=== PATIENT | female | born 1945 | race Caucasian/White ===

== ENCOUNTER 2017-07-11 19:02 | Emergency (ER) | payer OTHER ==
[~2017-07-11] VITALS: Ht 152.4 cm; Wt 63.0 kg
--- NOTE | 2017-07-11 21:28 | ULTRASOUND REPORT ---
US TRIPLEX LOWER EXTREMITY, RIGHT CLINICAL INFORMATION: Right lower extremity swelling. COMPARISON: None TECHNIQUE: Color-flow triplex imaging with spectral analysis and compression Doppler were performed on the lower extremity. FINDINGS: There is deep venous thrombosis extending from the right common femoral vein into the mid superficial femoral vein. The remaining venous system of the right lower extremity is widely patent and compressible. Low velocity flow. IMPRESSION: There is deep venous thrombosis extending from the right common femoral vein into the mid superficial femoral vein. Critical findings discussed with Dr. Stoddard at 9:25 PM on 07/11/2017.
--- NOTE | 2017-07-11 21:36 | ULTRASOUND REPORT ---
EXAMINATION: US DUPLEX LOWER EXTREMITY ARTERY/GRAFT LIMITED, right groin. CLINICAL INFORMATION: Cardiac catheter on Sunday. Leg swelling yesterday. COMPARISON: None TECHNIQUE: Grayscale and color Doppler exam performed. Spectral Doppler exam performed. Right groin examined. Common femoral artery through the superior femoral artery examined. FINDINGS: No pseudoaneurysm or focal fluid collections. The common femoral vein is noncompressible. A DVT study not excluded. IMPRESSION: 1. No pseudoaneurysm or focal fluid collection in right groin. 2. Noncompressible common femoral vein. Concern for deep vein thrombosis. A Doppler ultrasound study of the right lower extremity was subsequently performed. See separate report.
[2017-07-11 22:12] VITALS: BP 116/71
[2017-07-11 22:22] LABS: ABSOLUTE BASOPHIL COUNT 0.1 /CUMM (0.0-0.2); ABSOLUTE EOSINOPHIL COUNT 0.4 /CUMM (0.0-0.7); ABSOLUTE GRANULOCYTE CT 6.1 /CUMM (1.4-6.5)
[2017-07-11 22:29] LABS: ABSOLUTE LYMPH COUNT 2.5 /CUMM (1.2-3.4); ABSOLUTE MONOCYTE COUNT 0.8 /CUMM (0.10-0.60); BASOPHIL % 0.8 % (0.0-2.0); EOSINOPHIL % 3.9 % (0-5); GRANULOCYTE % 61.9 % (42.2-75.2); MEAN CORPUSCULAR HGB 27.7 PG (27.0-31.0); MEAN CORPUSCULAR HGB CONC 32.7 G/DL (33.0-37.0); MEAN CORPUSCULAR VOLUME 84.9 FL (81.0-99.0); MEAN PLATELET VOLUME 9.2 FL (7.4-10.4); PLATELET COUNT 272 /CUMM (130-400); RBC DISTRIBUTION WIDTH 14.1 % (11.5-14.5); RED BLOOD CELL CT 3.88 /CUMM (4.20-5.40); WHITE BLOOD CELL COUNT 9.9 /CUMM (4.8-10.8)
[2017-07-11 22:34] LABS: HEMATOCRIT 32.9 % (37-47)
--- NOTE | 2017-07-11 22:35 | ED GENERAL ADULT ---
History of Present Illness General Chief Complaint: General Adult Stated Complaint: SIB DR BERRY Source: patient, old records Exam Limitations: no limitations Vital Signs & Intake/Output Vital Signs & Intake/Output Vital Signs Date Time Temp Pulse Resp B/P B/P Pulse O2 O2 Flow FiO2 Mean Ox Delivery Rate 07/11 2310 Room Air 07/11 2211 98.9 70 18 116/71 96 Room Air 07/110 97.2 67 18 123/77 96 Room Air Allergies Coded Allergies: codeine (Intermediate, GI UPSET 07/06/17) Reconcile Medications Apixaban (Eliquis) 5 MG (74 TABS) TAB.DS.PK 0 PO SEE ADMIN CRITERIA dvt 2 tabs 2 times a day for 1 week then 1 tab 2 times a day Core Measure Meds Pre-Hospital aspirin, brillinta Triage Note: PT FROM HOME SENT IN BY DR BERRY DUE TO RIGHT LEG PAIN. PT STATES THAT SUNDAY PT HAD A OK AND WAS SHIPPED TO [facility]. PT DENIES HAVING ANY STENTS PLACED. PT STATES "SINCE THEN MY RIGHT LEG HAS BEEN PAINFUL, SWOLLEN, AND RED WHEN TOUCHED AT THE SITE OF INCISION. PT AMBULATES WITHOUT DIFFICULTY. PTS VSS, AFEBRILE. PT TO AND FROM US. PT STATES CURRENTLY ON BLOOD THINNERS. Triage Nurses Notes Reviewed? yes Onset: yesterday Duration: day(s):, constant, continues in ED Timing: recent history Injury Environment: home Severity: moderate, severe No Modifying Factors: none LMP (ages 10-50): post menopausal : No Patient currently breastfeeds: No HPI: 6 days prior to admission patient had OK with transfer to [facility] for cardiac catheterization and stenting. 1 day prior to admission she noted right leg swelling continued right inguinal bruising. She denies fever chills nausea vomiting diarrhea abdominal pain chest pain shortness breath headache dysuria. Past History Travel History Traveled to [place] past 21 day No Medical History Any Pertinent Medical History? 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 No Review of Systems Review of Systems Constitutional: Reports: no symptoms. EENTM: Reports: no symptoms. Respiratory: Reports: no symptoms. Cardiovascular: Reports: no symptoms. GI: Reports: no symptoms. Genitourinary: Reports: no symptoms. Musculoskeletal: Reports: see HPI, joint pain, muscle pain. Skin: Reports: see HPI. Neurological/Psychological: Reports: no symptoms. Hematologic/Endocrine: Reports: no symptoms. Immunologic/Allergic: Reports: no symptoms. All Other Systems: Reviewed and Negative Physical Exam Physical Exam General Appearance: well developed/nourished, alert, awake, anxious, mild distress, obese Head: atraumatic, normal appearance Eyes: Bilateral: normal appearance, PERRL, EOMI. Ears, Nose, Throat: normal pharynx, normal ENT inspection, hearing grossly normal, moist mucus membranes Neck: normal inspection, supple, full range of motion, no midline tenderness Respiratory: normal breath sounds, chest non-tender, no respiratory distress, quiet respiration, lungs clear Cardiovascular: regular rate/rhythm, normal peripheral pulses, norml femoral pulses equa Peripheral Pulses: 4+ carotid (R), 4+ carotid (L), 4+ femoral (R), 4+ femoral (L), 1+ dorsalis pedis (R), 1+ dorsalis pedis (L) Gastrointestinal: normal bowel sounds, soft, non-tender, no organomegaly Back: normal inspection, normal range of motion Extremities: normal capillary refill, normal range of motion, calf tenderness, swelling, tenderness, ecchymosis tenderness right inguinal area extending to mid medial thigh Neurologic/Psych: no motor/sensory deficits, awake, alert, oriented x 3, normal mood/affect, j2ee developer II-XII nml as tested Reflexes: 2+: bicep (R), bicep (L). Skin: intact, warm/dry, ecchymosis Lymphatic: no anterior cervical evita Core Measures ACS in differential dx? No CVA/TIA Diagnosis: No Sepsis Present: No Sepsis Focused Exam Completed? No Progress Differential Diagnoses I considered the following diagnoses in my evaluation of the patient: DVT pseudoaneurysm Plan of Care: Orders Procedure Date/time Status PARTIAL THROMBOPLASTIN TIME 07/11 2199 Complete PROTHROMBIN TIME 07/11 2199 Complete COMPREHENSIVE METABOLIC PANEL 07/11 2199 Complete CBC WITHOUT DIFFERENTIAL 07/11 2199 Complete Laboratory Tests 07/11/172209: Anion Gap 9, Estimated GFR > 60, BUN/Creatinine Ratio 21.4, Glucose 91, Calcium 9.4, Total Bilirubin 0.7, AST 25, ALT 34, Alkaline Phosphatase 60, Total Protein 6.2 L, Albumin 3.6, Globulin 2.6, Albumin/Globulin Ratio 1.4, PT 11.2, INR 1.07 , APTT 35, CBC w Diff NO MAN DIFF REQ, RBC 3.88 L, MCV 84.9, MCH 27.7, MCHC 32.7 L, RDW 14.1, MPV 9.2, Gran % 61.9, Lymphocytes % 25.3, Monocytes % 8.1, Eosinophils % 3.9, Basophils % 0.8, Absolute Granulocytes 6.1, Absolute Lymphocytes 2.5, Absolute Monocytes 0.8 H, Absolute Eosinophils 0.4, Absolute Basophils 0.1 Diagnostic Imaging: Viewed by Me: Ultrasound. Discussed w/RAD: Ultrasound. Radiology Impression: There is deep venous thrombosis extending from the right common femoral vein into the mid superficial femoral vein., 1. No pseudoaneurysm or focal fluid collection in right groin. 2. Noncompressible common femoral vein. Concern for deep vein thrombosis. A Doppler ultrasound study of the right lower extremity was subsequently performed. See separate report. Initial ED EKG: none Departure Departure Time of Disposition: 2321 Disposition: HOME OR SELF CARE Condition: Stable Clinical Impression Primary Impression: Leg DVT (deep venous thromboembolism), acute Referrals: Felipe GOODMAN,Wisam Stewart (PCP/Family) Corinne Berry MD Departure Forms: Customer Survey General Discharge Information Prescriptions: Current Visit Scripts Apixaban (Eliquis) 0 PO SEE ADMIN CRITERIA #1 PACKET 2 tabs 2 times a day for 1 week then 1 tab 2 times a day Critical Care Note Critical Care Note Critical Care Time: non-applicable
[2017-07-11 22:39] LABS: PT 11.2 SEC (9.4-12.5); PTT 35 SEC (25-37)
[2017-07-11] MEDS ORDERED: ELIQUIS5 M3 PO (23:26)
== END 2017-07-11 23:39 ==
LOC: ERH 19:02
PROVIDERS: Emergency Medicine
DX: I82.401 Acute embolism and thrombosis of unspecified deep veins of right lower extremity (principal)

== ENCOUNTER → 2018-02-01 | Day surgery (SDC) | payer OTHER ==
[2007-08-27 09:18] VITALS: BP 110/50
[~2018-02-01] MED LIST: ASPIRIN81 M4 PO; BRILINTA90 M1 PO; CARVEDILOL3.125 M1 PO; ELIQUIS5 M1 PO; ELIQUIS5 M3 PO; OMEPRAZOLE40 M1 PO; SENNA8.6 M3 PO; SIMVASTATIN40 M1 PO; TRAMADOL HCL50 M1
--- NOTE | 2018-02-01 13:20 | Operative Report ---
Operative/Inv Procedure Report Surgery Date: 02/01/18 Name of Procedure: cystocele repair with mesh and cystoscopy Pre-Operative Diagnosis: cystocele grade 3-4 Post-Operative Diagnosis: same Estimated Blood Loss: scant Surgeon/Development Intern: Alana Connelly MD Anesthesia: laryngeal mask airway Implants: vaginal mesh Complications: none Condition: stable Operative Indication: cystocele Operative/Procedure Note Note: 72yo female with a hx of cystocele for 18yrs and the symptoms are worsening. She is very bothered by the vaginal bulge. She was initially fit with a ring pessary with Dr. Gillespie but it was too uncomfortable and she removed it. She admits to urinary frequency q2hrs and wakes q1hrs at times. She has no voiding issues except feeling like she does not empty completely always. She has no COREY but has monthly UUI. No pads are needed. Patient was taken to the operating room and placed on the operating table in the supine position. LMA was placed by anesthesia without difficulty. IV antibiotics were infused. She was placed in the dorsolithotomy position and prepped and draped in a standard sterile fashion after shaving the genitalia. A [place] retractor was placed with 6 stay hooks. Colon catheter was placed and 10 cc was placed into the balloon port. One Percent lidocaine with epinephrine was infiltrated into the anterior vaginal wall from the bladder neck to the apex of the vagina. An incision was made in the same distance and the vaginal flaps were created taking care not to injure the bladder. Once the entire cystocele was dissected free the Coloplast Restoril mesh was then placed with 4 Prolene sutures with the thin Capio device. One in the sacrospinous ligament on the right side followed by the left side and one each in the arcus tendineus at the level of the bladder neck on the right and left side. They were each in excellent placement and the mesh was secured and tied down after 2-0 Vicryl sutures were placed at the bladder neck and at the cervix. There area was copiously irrigated with bacitracin irrigation. Methylene blue had been given at the start of the case to check for patency of the ureteral orifices at a later time. The ureteral orifices were able to be identified and efflux was seen from both ureters with cystoscopy. The anterior vaginal wall was then closed with 2-0 Vicryl running suture locking every third suture. 2 inch vaginal packing impregnated with bacitracin ointment was placed in the vaginal vault. Sponge and needle count were correct at the end of the case. Patient tolerated the procedure well. Findings: no mesh in bladder or vaginal fornices. excellent ureretal efflux bilaterally. Discharge Disposition: PACU
== END ==
LOC: STS 01-11 07:00
DX: N81.3 Complete uterovaginal prolapse (principal); R35.0 Frequency of micturition; R35.1 Nocturia; I25.10 Atherosclerotic heart disease of native coronary artery without angina pectoris; D68.59 Other primary thrombophilia; I82.409 Acute embolism and thrombosis of unspecified deep veins of unspecified lower extremity; I25.2 Old myocardial infarction; Z79.01 Long term (current) use of anticoagulants
CPT/HCPCS: J0131; J0690; J2250; Q9968

== ENCOUNTER 2018-02-02 11:41 | Inpatient (IN) | payer OTHER ==
[~2018-02-02] VITALS: Ht 152.4 cm; Wt 50.5 kg
[~2018-02-02 11:41] MED LIST changes: -TRAMADOL HCL50 M1
[2018-02-02 12:26] LABS: ABSOLUTE BASOPHIL COUNT 0 /CUMM (0.0-0.2); ABSOLUTE EOSINOPHIL COUNT 0 /CUMM (0.0-0.7); ABSOLUTE GRANULOCYTE CT 9.1 /CUMM (1.4-6.5); ABSOLUTE LYMPH COUNT 1.8 /CUMM (1.2-3.4); ABSOLUTE MONOCYTE COUNT 0.7 /CUMM (0.10-0.60); BASOPHIL % 0.4 % (0.0-2.0); EOSINOPHIL % 0.4 % (0-5); GRANULOCYTE % 77.8 % (42.2-75.2); HEMATOCRIT 37.2 % (37-47); MEAN CORPUSCULAR HGB CONC 33.4 G/DL (33.0-37.0); MEAN PLATELET VOLUME 7.6 FL (7.4-10.4); PLATELET COUNT 359 /CUMM (130-400); RBC DISTRIBUTION WIDTH 14.9 % (11.5-14.5); RED BLOOD CELL CT 4.43 /CUMM (4.20-5.40)
[2018-02-02 12:27] LABS: PT 15.1 SEC (9.4-12.5); PTT 36 SEC (25-37)
[2018-02-02 12:32] LABS: WHITE BLOOD CELL COUNT 11.7 /CUMM (4.8-10.8)
--- NOTE | 2018-02-02 15:37 | CT SCAN REPORT ---
EXAMINATION: CT ABDOMEN AND PELVIS WITH CONTRAST CLINICAL INFORMATION: Lower abdominal pain. Had bladder mesh yesterday. COMPARISON: None. TECHNIQUE: Multidetector volumetric imaging was performed of the abdomen and pelvis following IV administration of 95 mL of Optiray 320 intravenous contrast. Sagittal and coronal reformatted images were obtained on the technologist's workstation. DLP: 241 mGy-cm FINDINGS: LUNG BASES: The visualized lung bases are unremarkable. LIVER, GALLBLADDER, AND BILIARY TREE: The liver is normal in size, shape, and attenuation. No focal hepatic lesion or biliary ductal dilatation is present. The gallbladder is unremarkable with no evidence of radiopaque gallstones, gallbladder wall thickening, or obvious pericholecystic inflammatory changes. PANCREAS: Unremarkable. SPLEEN: Unremarkable. ADRENAL GLANDS: Unremarkable. KIDNEYS AND URETERS: The kidneys are normal in size, shape, and attenuation. No hydronephrosis, hydroureter, or calculi seen. No perinephric stranding. BLADDER: The bladder is distended with gas visualized along the superior aspect. This could be secondary to catheterization or iatrogenic. GASTROINTESTINAL TRACT: There is moderate stool seen throughout the colon with scattered diverticuli in ascending and transverse colon. There is diffuse sigmoid diverticulosis with mild mural thickening and fat stranding suspicious for diverticulitis. There is nonspecific mild presacral thickening. The small-bowel loops are normal caliber. The stomach is unremarkable. ABDOMINAL WALL: No significant hernia is appreciated. LYMPH NODES: Normal. VASCULAR: Unremarkable. PELVIC VISCERA: There are small droplets of air seen in right lower pelvis suggestive of likely perforation or postsurgical changes. There is large soft tissue mass in between the sigmoid posteriorly and bladder anteriorly measuring 5.8 x 6.1 x 5.9 cm. It measures approximately 70 Hounsfield units and a punctate hyperdensity, question active bleeding, seen on axial image 74, series 2. This may represent a large hematoma. Differential diagnosis may include an abscess or an enlarged uterus with intrinsic hemorrhage. OSSEOUS STRUCTURES: Unremarkable. IMPRESSION: Soft tissue 6 cm mass in between the bladder and rectum measuring approximately 70 Hounsfield units. Likely hematoma. There is a suspicion of active bleeding occurring on CT axial image 74, series 2. Also visualized is free air in lower right pelvis and air within the soft tissue mass which could be secondary to surgery or bowel perforation. Correlation with history for surgery should be performed as patient is status post bladder mesh placement yesterday. Scattered ascending and transverse diverticula and diffuse sigmoid diverticulosis. There is no bowel obstruction seen except for moderate constipation. There is air in the bladder likely from catheterization. Again correlate with history. Results were discussed by phone with Sean HOLBROOK in ER at 3:00 PM
--- NOTE | 2018-02-02 15:53 | ED GI/GU/ABDOMINAL COMPLAINT ---
History of Present Illness General Chief Complaint: General Adult Stated Complaint: SIB , POST OP COMPLICATIONS Source: patient Exam Limitations: no limitations Vital Signs & Intake/Output Vital Signs & Intake/Output Vital Signs Date Time Temp Pulse Resp B/P B/P Pulse O2 O2 Flow FiO2 Mean Ox Delivery Rate 02/05 1441 98.3 83 20 102/64 98 02/05 0943 90 120/76 02/05 0623 97.7 73 20 104/64 97 Room Air 02/04 2358 98.6 73 20 98/70 94 Room Air 02/04 2119 66 90/50 ED Intake and Output 02/05 0000 02/04 1200 Intake Total 1005 Output Total 950 Balance 55 Intake, IV 10 Intake, Oral 995 Number 2 Bowel Movements Output, Urine 950 Reconcile Medications Apixaban (Eliquis) 5 MG TABLET 1 TAB PO BID BLOOD THINNER (Reported) Aspirin (Aspirin*) 81 MG TAB.CHEW 1 TAB PO DAILY HEART HEALTH (Reported) Carvedilol 3.125 MG TABLET 1 TAB PO BID HEART (Reported) Omeprazole 40 MG CAPSULE.DR 1 CAP PO DAILY GI (Reported) Sennosides (Senna) 8.6 MG TABLET 1 TAB PO QPM CONSTIPATION (Reported) Simvastatin (Simvastatin*) 40 MG TABLET 1 TAB PO QPM CHOLESTEROL (Reported) Tramadol HCl (Unknown Strength) TABLET (Unknown Dose) PRN PAIN (Reported) Triage Note: PT STATES BLADDER MESH SURGERY YESTERDAY AND NOW SHE HAS A LOT OF VAGINAL BLEEDING. CALLED THE SURGEON LAST NIGHT D/T PAIN. STATES PAIN MEDICINE ISN'T WORKING Triage Nurses Notes Reviewed? yes ? n Is pt currently ? No Onset: Abrupt Duration: day(s): Timing: recent history Radiation: no radiation HPI: 72-year-old female comes into the emergency room for further evaluation of abdominal pain. Patient had a cystocele repair yesterday with the bladder mesh done by Dr. connelly transvaginally. She reports that she's had thoughts of bleeding from her vaginal area as well as lower abdominal pain. Some associated nausea. Denies any fever chills. (Sean Acosta) Allergies Coded Allergies: acetaminophen (From PERCOCET) (Intermediate, FLUSHING 02/03/18) oxycodone (From PERCOCET) (Intermediate, FLUSHING 02/03/18) atorvastatin (UNKNOWN 02/03/18) codeine (Intermediate, GI UPSET 02/02/18) (Domonique GOODMAN,Noé Blas) Past History Travel History Traveled to [place] past 21 day No Medical History Any Pertinent Medical History? 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 No (Sean Acosta) Review of Systems Review of Systems Constitutional: Reports: no symptoms. EENTM: Reports: no symptoms. Respiratory: Reports: no symptoms. Cardiovascular: Reports: no symptoms. GI: Reports: see HPI. Genitourinary: Reports: see HPI. Musculoskeletal: Reports: no symptoms. Skin: Reports: no symptoms. Neurological/Psychological: Reports: no symptoms. Hematologic/Endocrine: Reports: see HPI. Immunologic/Allergic: Reports: no symptoms. All Other Systems: Reviewed and Negative (Sean Acosta) Physical Exam Physical Exam General Appearance: well developed/nourished, alert, awake, moderate distress Head: atraumatic, normal appearance Eyes: Bilateral: normal appearance. Ears, Nose, Throat, Mouth: hearing grossly normal, moist mucous membrane Neck: normal inspection Respiratory: no respiratory distress Gastrointestinal: soft, tenderness Extremities: normal range of motion Neurologic/Psych: awake, alert Skin: intact Core Measures ACS in differential dx? No Sepsis Present: No Sepsis Focused Exam Completed? No (Sean Acosta) Progress Differential Diagnosis: pOSTOPERATIVE BLEEDING, uti, PERFORATION, Plan of Care: Orders Procedure Date/time Status CBC WITHOUT DIFFERENTIAL 02/06 0600 Active Current Medications Sig/Alessio Start time Last Medication Dose Stop Time Status Admin Bisacodyl 5 MG DAILY 02/05 1015 AC 02/05 (Dulcolax) 1051 Senna 187 MG AT BEDTIME 02/04 2100 AC 02/04 (Senokot) 211 Acetaminophen 650 MG Q4P PRN 02/04 1500 AC 02/04 (Tylenol) 211 Polyethylene Glycol 17 GM DAILY PRN 02/04 1334 AC (Miralax) Carvedilol 12.5 MG BID 02/04 0900 AC 02/05 (Coreg) 0943 Simvastatin 40 MG DAILY@1700 02/03 1745 AC 02/04 (Zocor) 1840 Omeprazole 40 MG DAILY AC 02/02 1702 AC 02/05 (Prilosec) 0507 Laboratory Tests 02/05/18 0745: Anion Gap 8, Estimated GFR > 60, BUN/Creatinine Ratio 22.0, CBC w Diff NO MAN DIFF REQ, RBC 3.55 L, MCV 84.6, MCH 28.4, MCHC 33.6, RDW 14.8 H, MPV 7.9, Gran % 67.5, Lymphocytes % 18.8 L, Monocytes % 9.6 H, Eosinophils % 3.3, Basophils % 0.8, Absolute Granulocytes 7.0 H, Absolute Lymphocytes 1.9, Absolute Monocytes 1.0 H, Absolute Eosinophils 0.3, Absolute Basophils 0.1 Diagnostic Imaging: Viewed by Me: CT Scan. Discussed w/RAD: CT Scan. Radiology Impression: PATIENT: LEXIS PETERS PRESENT AGE: 72 PATIENT ACCOUNT NO: [id number] : 47 LOCATION: [facility] ORDERING PHYSICIAN: Sean HOLBROOK SERVICE DATE: 02/02/18 EXAM TYPE : CAT - CT ABD & PELVIS W IV CONTRAST EXAMINATION: CT ABDOMEN AND PELVIS WITH CONTRAST CLINICAL INFORMATION: Lower abdominal pain. Had bladder mesh yesterday. COMPARISON: None. TECHNIQUE: Multidetector volumetric imaging was performed of the abdomen and pelvis following IV administration of 95 mL of Optiray 320 intravenous contrast. Sagittal and coronal reformatted images were obtained on the technologist's workstation. DLP: 241 mGy-cm FINDINGS: LUNG BASES: The visualized lung bases are unremarkable. LIVER, GALLBLADDER, AND BILIARY TREE: The liver is normal in size, shape, and attenuation. No focal hepatic lesion or biliary ductal dilatation is present. The gallbladder is unremarkable with no evidence of radiopaque gallstones, gallbladder wall thickening, or obvious pericholecystic inflammatory changes. PANCREAS: Unremarkable. SPLEEN: Unremarkable. ADRENAL GLANDS: Unremarkable. KIDNEYS AND URETERS: The kidneys are normal in size, shape, and attenuation. No hydronephrosis, hydroureter, or calculi seen. No perinephric stranding. BLADDER: The bladder is distended with gas visualized along the superior aspect. This could be secondary to catheterization or iatrogenic. GASTROINTESTINAL TRACT: There is moderate stool seen throughout the colon with scattered diverticuli in ascending and transverse colon. There is diffuse sigmoid diverticulosis with mild mural thickening and fat stranding suspicious for diverticulitis. There is nonspecific mild presacral thickening. The small-bowel loops are normal caliber. The stomach is unremarkable. ABDOMINAL WALL: No significant hernia is appreciated. LYMPH NODES: Normal. VASCULAR: Unremarkable. PELVIC VISCERA: There are small droplets of air seen in right lower pelvis suggestive of likely perforation or postsurgical changes. There is large soft tissue mass in between the sigmoid posteriorly and bladder anteriorly measuring 5.8 x 6.1 x 5.9 cm. It measures approximately 70 Hounsfield units and a punctate hyperdensity, question active bleeding, seen on axial image 74, series 2. This may represent a large hematoma. Differential diagnosis may include an abscess or an enlarged uterus with intrinsic hemorrhage. OSSEOUS STRUCTURES: Unremarkable. IMPRESSION: Soft tissue 6 cm mass in between the bladder and rectum measuring approximately 70 Hounsfield units. Likely hematoma. There is a suspicion of active bleeding occurring on CT axial image 74, series 2. Also visualized is free air in lower right pelvis and air within the soft tissue mass which could be secondary to surgery or bowel perforation. Correlation with history for surgery should be performed as patient is status post bladder mesh placement yesterday. Scattered ascending and transverse diverticula and diffuse sigmoid diverticulosis. There is no bowel obstruction seen except for moderate constipation. There is air in the bladder likely from catheterization. Again correlate with history. Results were discussed by phone with Sean HOLBROOK in ER at 3:00 PM DICTATED BY: Tuan Ho MD DATE/TIME DICTATED:02/02/181430 CHEF MANAGER:SYEDA DATE/TIME TRANSCRIBED:02/02/181430 CONFIDENTIAL, DO NOT COPY WITHOUT APPROPRIATE AUTHORIZATION. <Electronically signed in Other Vendor System> SIGNED BY: Tuan Ho MD 02/02/18 8309 Initial ED EKG: none Comments: Dr. Connelly was consult and will consult on the patient. Monitor H&H. No other acute intervention at this time. ([place] HOLBROOK,Sean) Departure Departure Disposition: STILL A PATIENT Condition: Stable Clinical Impression Primary Impression: Postoperative vaginal bleeding following genitourinary procedure Referrals: Felipe GOODMAN,Wisam Stewart (PCP/Family) Departure Forms: Customer Survey General Discharge Information Admission Note Spoke With: Eugenio GOODMAN,Re Clarke Documentation of Exam: Documentation of any treatments & extenuating circumstances including Concerns Regarding Discharge (functional status, medication knowledge or non-compliance, living conditions, etc.) that warrant an admission rather than observation: Patient will require surgical consultation. Serial H&H's. Medically not safe for discharge. ([place] HOLBROOK,Sean) PA/ANALYTICS LEADER Co-Sign Statement Statement: ED Attending supervision documentation- [X] I saw and evaluated the patient. I have also reviewed all the pertinent lab results and diagnostic results. I agree with the findings and the plan of care as documented in the PA's/ANALYTICS LEADER's documentation. [] I have reviewed the ED Record and agree with the PA's/ANALYTICS LEADER's documentation. [] Additions or exceptions (if any) to the PAs/ANALYTICS LEADER's note and plan are summarized below: [] (Domonique GOODMAN,Noé Blas)
[2018-02-02] MEDS ORDERED: TRAMADOL HCL50 M1 (16:23)
--- NOTE | 2018-02-02 17:18 | History & Physical ---
Rasheed GOODMAN,Mali 02/02/18 1717: General Information and HPI MD Statement: I have seen and personally examined LEXIS PETERS and documented this H&P. The patient is a 72 year old F who presented with a patient stated chief complaint of [vaginal bleeding]. Source of Information: patient Exam Limitations: no limitations History of Present Illness: The patient is 72-year-old female with past medical history of recent TX in 2017, diverticulitis, prothrombin gene mutation maintained on Abixaban. The patient underwent a cystocele repair with mesh by Dr. Connelly yesterday. The procedure itself was uncomplicated however after going on patient started having gentiurinary bleeding and since the procedure she has changed almost 10-12 pads. Fresh red blood is coming along with passage of some clots. Patient reports subjective fevers. No chills. She also reports she has been having a burning sensation since the procedure. However there are no other urinary complaints. On review systems she denies any chest pain or any respiratory symptoms. There is diffuse lower abdominal tenderness. Allergies/Medications Allergies: Coded Allergies: codeine (Intermediate, GI UPSET 02/02/18) Home Med list Apixaban (Eliquis) 5 MG TABLET 1 TAB PO BID BLOOD THINNER (Reported) Aspirin (Aspirin*) 81 MG TAB.CHEW 1 TAB PO DAILY HEART HEALTH (Reported) Carvedilol 3.125 MG TABLET 1 TAB PO BID HEART (Reported) Omeprazole 40 MG CAPSULE.DR 1 CAP PO DAILY GI (Reported) Sennosides (Senna) 8.6 MG TABLET 1 TAB PO QPM CONSTIPATION (Reported) Simvastatin (Simvastatin*) 40 MG TABLET 1 TAB PO QPM CHOLESTEROL (Reported) Tramadol HCl (Unknown Strength) TABLET (Unknown Dose) PRN PAIN (Reported) Past History Travel History Traveled to [place] past 21 day No Medical History Neurological: NONE EENT: NONE Cardiovascular: hyperlipidemia, myocardial infarction Respiratory: NONE Gastrointestinal: diverticulitis Hepatic: NONE Renal: NONE Musculoskeletal: NONE Psychiatric: NONE Endocrine: NONE Blood Disorders: DVT Cancer(s): NONE PURCHASING/RECEIVING/Reproductive: NONE Surgical History Surgical History: non-contributory Past Family/Social History Family History Relations & Conditions if any Relation not specified for: *No pertinent family history Psychosocial History Where do you live? Home Who Do You Live With? child Smoking Status: Never Smoked ETOH Use: denies use Illicit Drug Use: denies illicit drug use Functional Ability ADLs Independent: dressing, eating, toileting, bathing. Ambulation: independent IADLs Independent: shopping, housework, finances, food prep, telephone, transportation , medication admin. Review of Systems Review of Systems Constitutional: Reports: see HPI. Exam & Diagnostic Data Last 24 Hrs of Vital Signs/I&O Vital Signs Date Time Temp Pulse Resp B/P B/P Pulse O2 O2 Flow FiO2 Mean Ox Delivery Rate 02/02 1725 98.8 90 20 161/83 98 Room Air 02/02 1530 98.2 88 18 198/98 98 02/02 1153 98.2 69 20 166/103 97 Room Air Intake & Output 02/02 1600 02/02 0800 02/02 0000 Intake Total Output Total Balance Patient 112 lb Weight Weight Reported by Patient Measurement Method Physical Exam General Appearance Alert, Oriented X3, Cooperative, Mild Distress Skin No Rashes, No Breakdown HEENT Atraumatic, PERRLA, EOMI Neck Supple, No JVD, No thryomegaly Cardiovascular Normal S1, Normal S2, No Murmurs Lungs Clear to Auscultation, Normal Air Movement Abdomen Normal Bowel Sounds, Soft, lower abd tenderness Neurological Normal Gait, Normal Speech, Strength at 5/5 X4 Ext, Normal Tone, Sensation Intact, Cranial Nerves 3-12 NL Extremities No Clubbing, No Cyanosis Last 24 Hrs of Labs/Greg: Laboratory Tests 02/02/18 1217: Urine Color BLDY H, Urine Clarity CLDY H, Urine pH 6.5, Ur Specific [place] 1.025, Urine Protein 100 H, Urine Ketones NEG, Urine Nitrite POS H, Urine Bilirubin NEG@ICTO, Urine Urobilinogen 1.0, Ur Leukocyte Esterase SMALL H, Ur Microscopic SEDIMENT EXAMINED, Urine RBC PACKD H, Urine WBC 10-15 H, Ur Epithelial Cells FEW, Micro UA Comment MORE INFO: H, Urine Hemoglobin LARGE H, Urine Glucose NEG 02/02/18 1200: Anion Gap 10, Estimated GFR > 60, BUN/Creatinine Ratio 21.7, Glucose 105 H, Calcium 9.2, Total Bilirubin 0.5, AST 18, ALT 26, Alkaline Phosphatase 56, Total Protein 6.5, Albumin 3.9, Globulin 2.6, Albumin/Globulin Ratio 1.5, PT 15.1 H, INR 1.38 H, APTT 36, CBC w Diff NO MAN DIFF REQ, RBC 4.43, MCV 84.0, MCH 28.0, MCHC 33.4, RDW 14.9 H, MPV 7.6, Gran % 77.8 H, Lymphocytes % 15.7 L, Monocytes % 5.7, Eosinophils % 0.4, Basophils % 0.4, Absolute Granulocytes 9.1 H, Absolute Lymphocytes 1.8, Absolute Monocytes 0.7 H, Absolute Eosinophils 0, Absolute Basophils 0 Diagnostic Data Other Results CAT - CT ABD & PELVIS W IV CONTRAST Soft tissue 6 cm mass in between the bladder and rectum measuring approximately 70 Hounsfield units. Likely hematoma. There is a suspicion of active bleeding occurring on CT axial image 74, series 2. Also visualized is free air in lower right pelvis and air within the soft tissue mass which could be secondary to surgery or bowel perforation. Correlation with history for surgery should be performed as patient is status post bladder mesh placement yesterday. Scattered ascending and transverse diverticula and diffuse sigmoid diverticulosis. There is no bowel obstruction seen except for moderate constipation. There is air in the bladder likely from catheterization. Again correlate with history. Assessment/Plan Assessment: The patient is 72-year-old female with past medical history of recent TX in 2018 , diverticulitis, prothrombin gene mutation maintained on Abixaban. She is coming in post procedure cystocele repair with mesh with genitourinary bleeding. Vitals on presentation stable except elevated blood pressure repeat readings 161 /83 Admitting labs are significant for leukocytosis of 11.7, hyponatremia 134, INR of 1.38 UA is positive for RBCs, nitrate positive and 10-15 WBCs Patient is being admitted to general medicine for further treatment and evaluation of postop complications #Genitourinary bleeding status post cystocele repair and bladder mesh Patient is complaining of increasing abdominal pain and reports several pads to be changed because of ongoing bleeding. The CT scan done in the ED was positive for small hematoma. The patient is hemodynamically stable at this point. -We'll repeat H&H NOW and in the morning -Type and screen with with cardiac history transfusion goal will be Hb less than 8 -Adequate analgesia -Patient has hypercoagulable state and is maintained on a apixaban which we will be holding in setting of active bleeding risk versus benefit. -The small hematoma in is normal postoperatively. We'll continue to monitor for now -Patient has recent instrumentation and will give her 1 dose of ceftriaxone in setting of nitrate positive -Urology consult has been placed with Dr. Connelly #Prothrombin gene mutation Patient has history of hypercoagulable state with poor gene mutation -we are holding anticoagulation for now will address it in the morning, pending clinical status and H/H, at this point continuing anticoagulation is not visible risk outweighed the benefit. -ALPS for now #History of recent TX We hold aspirin setting of active bleeding -Continue carvedilol and statin #History of GERD -continue PPI #Hypertension hyperlipidemia -Continue carvedilol and statin #Heart healthy diet/DVT prophylaxis in Setting of Active Bleeding/FC As Ranked By This Provider Problem List: 1. Postoperative vaginal bleeding following genitourinary procedure Core Measures/Misc (02/04) Acute Coronary Syndrome ACS Diagnosis: No Congestive Heart Failure Congestive Heart Failure Diagnosis No Cerebrovascular Accident CVA/TIA Diagnosis: No VTE (View Protocol) VTE Risk Factors Age>40 No Mechanical VTE Prophylaxis d/t N/A MechProphylax Ordered No VTE Pharm Prophylaxis d/t Other (active bleeding) Comment: postop bleeding Sepsis (View protocol) Sepsis Present: No If YES complete Sepsis Event Note If YES complete Sepsis Event Note Eugenio GOODMAN,Re 02/02/18 1725: Core Measures/Misc (02/04) Sepsis (View protocol) If YES complete Sepsis Event Note If YES complete Sepsis Event Note Attending MD Review Statement Attending Statement Attending MD Statement: examined this patient, discuss w/resident/PA/OUTBOARD MOTOR INSPECTOR, agreed w/resident/PA/OUTBOARD MOTOR INSPECTOR, reviewed EMR data (avail), discussed with nursing, discussed with case mgmt, reviewed images Attending Assessment/Plan: 72-year-old female past medical history of hypertension, hyperlipidemia, hypercoagulable state apixaban and aspirin as an outpatient. She had a urological procedure done with cystocele repair and bladder mesh on Sunday. She is coming in with increasing abdominal pain because no severe bleeding she has had to change multiple pads and discomfort. CT scan done in the ER shows a small hematoma about 6 cm which urology feels could be normal postoperatively. She is hemodynamically stable and her crit is stable at this point. Given the bleeding and the multiple pads at this point I will bring her into [facility], she has been typed and crossed and will repeat a CBC later tonight and tomorrow morning. Urology is aware that she is here and Dr. Connelly will see her in the morning. At this point I think we will hold the anticoagulation as the risks of bleeding outweigh the benefits. Will follow closely and use ALPS for DVT prophylaxis.
--- NOTE | 2018-02-02 17:23 | Admission Certification ---
Admission Certification Certification Statement - As attending physician, I certify that at the time of - admission, based on clinical presentation, severity of - symptoms, need for further diagnostic testing and - therapeutic interventions, and risk of adverse outcomes - without in-hospital treatment, in my clinical assessment, - this patient requires an acute hospital stay for a minimum - of two nights or longer. I have also considered psychsocial - factors such as support system, advanced age, financial - issues, cognitive issues, and failed out-patient treatments, - past re-admission history, safety of patient, and lack of - compliance as applicable. Specific rationale supporting this admission is: Severe bleeding post cystocele and bladder mesh repair
[2018-02-02 18:07] LABS: ABSOLUTE BASOPHIL COUNT 0 /CUMM (0.0-0.2); ABSOLUTE EOSINOPHIL COUNT 0 /CUMM (0.0-0.7); ABSOLUTE LYMPH COUNT 1.4 /CUMM (1.2-3.4); ABSOLUTE MONOCYTE COUNT 0.4 /CUMM (0.10-0.60); BASOPHIL % 0.2 % (0.0-2.0); EOSINOPHIL % 0.1 % (0-5); HEMATOCRIT 35.6 % (37-47); MEAN CORPUSCULAR HGB CONC 33.3 G/DL (33.0-37.0); MEAN PLATELET VOLUME 7.6 FL (7.4-10.4); PLATELET COUNT 352 /CUMM (130-400); RBC DISTRIBUTION WIDTH 14.7 % (11.5-14.5); RED BLOOD CELL CT 4.24 /CUMM (4.20-5.40); WHITE BLOOD CELL COUNT 13.8 /CUMM (4.8-10.8)
[2018-02-02 18:09] LABS: GRANULOCYTE % 86.6 % (42.2-75.2)
[2018-02-02 21:55] VITALS: BP 192/96
[2018-02-03 00:46] VITALS: BP 160/101
[2018-02-03 06:23] VITALS: BP 156/102
[2018-02-03 09:26] LABS: ABSOLUTE BASOPHIL COUNT 0.1 /CUMM (0.0-0.2); ABSOLUTE EOSINOPHIL COUNT 0 /CUMM (0.0-0.7); ABSOLUTE GRANULOCYTE CT 12.3 /CUMM (1.4-6.5); ABSOLUTE LYMPH COUNT 1.9 /CUMM (1.2-3.4); BASOPHIL % 0.4 % (0.0-2.0); EOSINOPHIL % 0.3 % (0-5); GRANULOCYTE % 80.4 % (42.2-75.2); HEMATOCRIT 35.7 % (37-47); MEAN CORPUSCULAR HGB 28.2 PG (27.0-31.0); MEAN CORPUSCULAR HGB CONC 33.5 G/DL (33.0-37.0); MEAN CORPUSCULAR VOLUME 84.3 FL (81.0-99.0); MEAN PLATELET VOLUME 8.4 FL (7.4-10.4); PLATELET COUNT 297 /CUMM (130-400); RBC DISTRIBUTION WIDTH 14.8 % (11.5-14.5); RED BLOOD CELL CT 4.24 /CUMM (4.20-5.40); WHITE BLOOD CELL COUNT 15.3 /CUMM (4.8-10.8)
--- NOTE | 2018-02-03 09:30 | PN- Housestaff ---
Anastacio Iniguez 02/03/18 0928: Subjective Follow-up For: bleeding s/p cystocele Subjective: Patient was seen and examined today. SHe continues to have the bleeding and has soaked 2- 3 pads of bleeding soaked. The patient said she also constipated and the pressure is causing alot of pain and discomfoirt.Denies fever/ chills Review of Systems Constitutional: Reports: see HPI. Objective Last 24 Hrs of Vital Signs/I&O Vital Signs Date Time Temp Pulse Resp B/P B/P Pulse O2 O2 Flow FiO2 Mean Ox Delivery Rate 02/03 1333 98.7 90 18 162/90 93 Room Air 02/03 1130 88 172/102 02/03 1100 98.4 88 20 172/102 95 Room Air 02/03 0830 94 156/102 02/03 0623 98.5 94 20 156/102 94 02/03 0046 92 160/101 94 02/02 2219 80 192/96 02/02 2155 98.4 80 20 192/96 99 Room Air 02/02 2037 98.2 81 18 157/84 99 02/02 1917 98.0 88 18 161/81 99 02/02 1725 98.8 90 20 161/83 98 Room Air 02/02 1530 98.2 88 18 198/98 98 Intake & Output 02/03 1600 02/03 0800 02/03 0000 Intake Total 120 0 Output Total 50 600 0 Balance -50 -480 0 Intake, Oral 120 0 Number 0 Bowel Movements Output, Urine 50 600 0 Patient 117 lb 107 lb Weight Weight Bed scale Bed scale Measurement Method Physical Exam General Appearance: Alert, Oriented X3, Cooperative, Mild Distress Cardiovascular: Regular Rate, No Murmurs Lungs: Clear to Auscultation, Normal Air Movement Abdomen: Normal Bowel Sounds, Soft, No Tenderness, No Hepatospenomegaly, No Masses Neurological: Normal Speech, Strength at 5/5 X4 Ext, Normal Tone, Sensation Intact Extremities: No Clubbing, No Cyanosis, No Edema, Normal Pulses, No Tenderness/ Swelling Assessment/Plan Assessment: The patient is 72-year-old female with past medical history of recent VT in 2018 , diverticulitis, prothrombin gene mutation maintained on Abixaban. She is coming in post procedure cystocele repair with mesh with genitourinary bleeding. Vitals on presentation stable except elevated blood pressure repeat readings 161 /83 Admitting labs are significant for leukocytosis of 11.7, hyponatremia 134, INR of 1.38 UA is positive for RBCs, nitrate positive and 10-15 WBCs Patient is being admitted to general medicine for further treatment and evaluation of postop complications #Genitourinary bleeding status post cystocele repair and bladder mesh Patient is complaining of increasing abdominal pain and reports 2-3 PADS changed because of ongoing bleeding. The CT scan done in the ED was positive for small hematoma. The patient is hemodynamically stable at this point. -We'll repeat H&H and f/u , call DR Connelly if there is a drop in H and H -Type and screen with with cardiac history transfusion goal will be Hb less than 8 -Adequate analgesia -Hold eliquis for now -The small hematoma in is normal postoperatively. We'll continue to monitor for now -Patient has recent instrumentation and will give her 1 dose of ceftriaxone in setting of nitrate positive -f/u with dr Connelly. #Prothrombin gene mutation Patient has history of hypercoagulable state with poor gene mutation -we are holding anticoagulation for now will address it in the morning, pending clinical status and H/H, at this point continuing anticoagulation is not visible risk outweighed the benefit. -ALPS for now #History of recent VT We hold aspirin setting of active bleeding -Continue carvedilol and statin #History of GERD -continue PPI #Hypertension hyperlipidemia -Continue carvedilol and statin #Heart healthy diet/DVT prophylaxis in Setting of Active Bleeding/FC Problem List: 1. Postoperative vaginal bleeding following genitourinary procedure Pain Ratin Pain Location: perineal region Pain Goal: Remain pain free Pain Plan: as discussed Tomorrow's Labs & Rationales: transferred to Re Mcgrath MD 02/03/18 1018: Attending MD Review Statement Attending Statement Attending MD Statement: examined this patient, discuss w/resident/PA/FLIGHT ATTENDANT INFLIGHT SERVICES, agreed w/resident/PA/FLIGHT ATTENDANT INFLIGHT SERVICES, reviewed EMR data (avail), discussed with nursing, reviewed images Attending Assessment/Plan: The patient continues to have bleeding. She changed 3 pads in the last 24 hours since admission. Her crit has stayed stable. She is constipated and will start her on a bowel regimen. We will watch her creatinine closely. I did speak to Dr. Connelly and then not going to restart anticoagulation or aspirin for now. Her pressures on the high side despite her carvedilol so will start low-dose Norvasc. We will follow her CBCs later tonight and tomorrow morning. Given her elevated white count we will continue the ceftriaxone until we get a negative urine culture.
--- NOTE | 2018-02-03 10:33 | Cons- Urology ---
General Information and HPI Consulting Request Date of Consult: 02/03/18 Requested By: Re Becker MD Reason for Consult: postop bleeding Source of Information: patient Exam Limitations: no limitations History of Present Illness: This is a 72yo female with PMH significant for recent OH in 06/2017, diverticulitis, prothrombin gene mutation maintained on Eliquis and DVT hx s/p cystocele repair with mesh on 02/01/18 with minimal bleeding. The patient restarted her anticoagulation schedule the night after surgery given her minimal bleeding in the OR. However, she started having vaginal bleeding and since the procedure she has changed almost 10-12 pads. There were episodes of BRB with passage of clots. Patient reports subjective fevers. No chills. She also reports she has been having a burning sensation since the procedure. However there are no other urinary complaints. On review systems she denies any chest pain or any respiratory symptoms. There is diffuse lower abdominal tenderness and rectal pain. She has not had a BM since the surgery. She was admitted to the medical service due to her medical comorbidities. Allergies/Medications Allergies: Coded Allergies: codeine (Intermediate, GI UPSET 02/02/18) Home Med List: Apixaban (Eliquis) 5 MG TABLET 1 TAB PO BID BLOOD THINNER (Reported) Aspirin (Aspirin*) 81 MG TAB.CHEW 1 TAB PO DAILY HEART HEALTH (Reported) Carvedilol 3.125 MG TABLET 1 TAB PO BID HEART (Reported) Omeprazole 40 MG CAPSULE.DR 1 CAP PO DAILY GI (Reported) Sennosides (Senna) 8.6 MG TABLET 1 TAB PO QPM CONSTIPATION (Reported) Simvastatin (Simvastatin*) 40 MG TABLET 1 TAB PO QPM CHOLESTEROL (Reported) Tramadol HCl (Unknown Strength) TABLET (Unknown Dose) PRN PAIN (Reported) Current Medications: Current Medications Sig/Alessio Start time Last Medication Dose Route Stop Time Status Admin Amlodipine Besylate 5 MG DAILY 02/03 1100 AC PO Atorvastatin Calcium 40 MG 1700 02/03 1700 AC PO Bisacodyl 10 MG ONCE PRN 02/03 0215 AC 02/03 [place] 0251 Bisacodyl 5 MG DAILY 02/02 1737 AC 02/03 PO 0830 Carvedilol 3.125 MG BID 02/02 2100 AC 02/03 PO 0830 Ceftriaxone Sodium 0 .STK-MED ONE 02/03 1030 UNVr .ROUTE 02/03 1031 Ceftriaxone Sodium 0 .STK-MED ONE 02/02 1910 DC .ROUTE Ceftriaxone Sodium 1,000 MG ONCE ONE 02/02 1815 DC 02/02 IV 02/02 181 191 Hydromorphone HCl 1 MG ONCE ONE 02/03 0130 DC 02/03 PO 02/03 0131 0151 Hydromorphone HCl 0 .STK-MED ONE 02/02 191 DC PO Hydromorphone HCl 2 MG Q8 PRN 02/02 1745 AC 02/02 PO 1914 Hydromorphone HCl 0 .STK-MED ONE 02/02 1654 DC .ROUTE Hydromorphone HCl 0.4 MG ONCE ONE 02/02 1630 DC 02/02 IV 02/02 1631 1658 Influenza Virus 0.5 ML ONCE ONE 02/03 0900 CAN Vaccine IM 02/03 0901 Morphine Sulfate 3 MG ONCE ONE 02/02 1530 DC 02/02 IV 02/02 1531 1552 Morphine Sulfate 0 .STK-MED ONE 02/02 1529 DC .ROUTE Omeprazole 40 MG DAILY AC 02/02 1702 AC 02/03 PO 0547 Ondansetron HCl 4 MG ONCE ONE 02/02 1530 DC 02/02 IV 02/02 1531 1532 Ondansetron HCl 0 .STK-MED ONE 02/02 1529 DC .ROUTE Oxycodone/ 1 TAB Q6P PRN 02/02 1745 AC 02/02 Acetaminophen PO 2228 Polyethylene Glycol 17 GM DAILY 02/02 1736 AC 02/03 PO 0831 Senna 187 MG AT BEDTIME 02/02 2100 AC 02/02 PO 2220 Past History Medical History Blood Transfusion Hx: No Neurological: NONE EENT: allergies, sinusitis Cardiovascular: hyperlipidemia, myocardial infarction Respiratory: NONE Gastrointestinal: diverticulitis Hepatic: NONE Renal: NONE Musculoskeletal: NONE Psychiatric: NONE Endocrine: NONE Blood Disorders: DVT 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 Home Who Do You Live With? child Smoking Status: Never Smoked ETOH Use: denies use Illicit Drug Use: denies illicit drug use Functional Ability ADLs Independent: dressing, eating, toileting, bathing. Ambulation: independent IADLs Independent: shopping, housework, finances, food prep, telephone, transportation , medication admin. Review of Systems Review of Systems Constitutional: Denies: no symptoms. Cardiovascular: Reports: no symptoms. Respiratory: Reports: no symptoms. GI: Reports: abdominal pain. Genitourinary: Reports: no symptoms. Musculoskeletal: Reports: no symptoms. Skin: Reports: no symptoms. Neurological/Psychological: Reports: no symptoms. Hematologic/Endocrine: Reports: bleeding. Immunologic/Allergic: Reports: no symptoms. Exam & Diagnostic Data Vital Signs and I&O Vital Signs Date Time Temp Pulse Resp B/P B/P Pulse O2 O2 Flow FiO2 Mean Ox Delivery Rate 02/03 0830 94 156/102 02/03 0623 98.5 94 20 156/102 94 02/03 0046 92 160/101 94 02/02 2219 80 192/96 02/02 2155 98.4 80 20 192/96 99 Room Air 02/02 2037 98.2 81 18 157/84 99 02/02 1917 98.0 88 18 161/81 99 02/02 1725 98.8 90 20 161/83 98 Room Air 02/02 1530 98.2 88 18 198/98 98 02/02 1153 98.2 69 20 166/103 97 Room Air Intake & Output 02/03 1600 02/03 0800 02/03 0000 02/02 1600 02/02 0800 02/02 0000 Intake Total 0 Output Total 50 350 0 Balance -50 -350 0 Intake, Oral 0 Output, Urine 50 350 0 Patient 53.099 kg 48.308 kg 50.802 kg Weight Weight Bed scale Bed scale Reported by Patient Measurement Method Physical Exam General Appearance: well developed/nourished, alert, awake, anxious Head: atraumatic, normal appearance Eyes: Bilateral: normal appearance. Ears, Nose, Throat: normal ENT inspection Neck: normal inspection Respiratory: normal breath sounds Gastrointestinal: soft, non-tender Rectal: deferred Extremities: normal inspection Neurologic/Psych: awake, alert, oriented x 3 Cranial Nerves: normal hearing, normal speech Skin: intact, normal color, warm/dry Reproductive: Normal female genitalia (vag exam w bleeding onto pad) Pelvic: Appearance Normal Last 24 Hours of Labs: Laboratory Tests 02/03 02/02 0824 1754 Chemistry Sodium (137 - 145 mmol/L) 127 L Potassium (3.5 - 5.1 mmol/L) 4.1 Chloride (98 - 107 mmol/L) 92 L Carbon Dioxide (22 - 30 mmol/L) 25 Anion Gap (5 - 16) 9 BUN (7 - 17 mg/dL) 9 Creatinine (0.5 - 1.0 mg/dL) 0.4 L Estimated GFR (>60 ml/min) > 60 BUN/Creatinine Ratio (7 - 25 %) 22.5 Hematology CBC w Diff NO MAN DIFF REQ NO MAN DIFF REQ WBC (4.8 - 10.8 /CUMM) 15.3 H 13.8 H RBC (4.20 - 5.40 /CUMM) 4.24 4.24 Hgb (12.0 - 16.0 G/DL) 12.0 11.9 L Hct (37 - 47 %) 35.7 L 35.6 L MCV (81.0 - 99.0 FL) 84.3 84.0 MCH (27.0 - 31.0 PG) 28.2 28.0 MCHC (33.0 - 37.0 G/DL) 33.5 33.3 RDW (11.5 - 14.5 %) 14.8 H 14.7 H Plt Count (130 - 400 /CUMM) 297 352 MPV (7.4 - 10.4 FL) 8.4 7.6 Gran % (42.2 - 75.2 %) 80.4 H 86.6 H Lymphocytes % (20.5 - 51.1 %) 12.4 L 10.0 L Monocytes % (1.7 - 9.3 %) 6.5 3.1 Eosinophils % (0 - 5 %) 0.3 0.1 Basophils % (0.0 - 2.0 %) 0.4 0.2 Absolute Granulocytes (1.4 - 6.5 /CUMM) 12.3 H 12.0 H Absolute Lymphocytes (1.2 - 3.4 /CUMM) 1.9 1.4 Absolute Monocytes (0.10 - 0.60 /CUMM) 1.0 H 0.4 Absolute Eosinophils (0.0 - 0.7 /CUMM) 0 0 Absolute Basophils (0.0 - 0.2 /CUMM) 0.1 0 15 02/02 1217 1200 Chemistry Sodium (137 - 145 mmol/L) 134 L Potassium (3.5 - 5.1 mmol/L) 4.2 Chloride (98 - 107 mmol/L) 97 L Carbon Dioxide (22 - 30 mmol/L) 28 Anion Gap (5 - 16) 10 BUN (7 - 17 mg/dL) 13 Creatinine (0.5 - 1.0 mg/dL) 0.6 Estimated GFR (>60 ml/min) > 60 BUN/Creatinine Ratio (7 - 25 %) 21.7 Glucose (65 - 99 mg/dL) 105 H Calcium (8.4 - 10.2 mg/dL) 9.2 Total Bilirubin (0.2 - 1.3 mg/dL) 0.5 AST (14 - 36 U/L) 18 ALT (9 - 52 U/L) 26 Alkaline Phosphatase (<127 U/L) 56 Total Protein (6.3 - 8.2 g/dL) 6.5 Albumin (3.5 - 5.0 g/dL) 3.9 Globulin (1.9 - 4.2 gm/dL) 2.6 Albumin/Globulin Ratio (1.1 - 2.2 %) 1.5 Coagulation PT (9.4 - 12.5 SEC) 15.1 H INR (0.90 - 1.19) 1.38 H APTT (25 - 37 SEC) 36 Hematology CBC w Diff NO MAN DIFF REQ WBC (4.8 - 10.8 /CUMM) 11.7 H RBC (4.20 - 5.40 /CUMM) 4.43 Hgb (12.0 - 16.0 G/DL) 12.4 Hct (37 - 47 %) 37.2 MCV (81.0 - 99.0 FL) 84.0 MCH (27.0 - 31.0 PG) 28.0 MCHC (33.0 - 37.0 G/DL) 33.4 RDW (11.5 - 14.5 %) 14.9 H Plt Count (130 - 400 /CUMM) 359 MPV (7.4 - 10.4 FL) 7.6 Gran % (42.2 - 75.2 %) 77.8 H Lymphocytes % (20.5 - 51.1 %) 15.7 L Monocytes % (1.7 - 9.3 %) 5.7 Eosinophils % (0 - 5 %) 0.4 Basophils % (0.0 - 2.0 %) 0.4 Absolute Granulocytes (1.4 - 6.5 /CUMM) 9.1 H Absolute Lymphocytes (1.2 - 3.4 /CUMM) 1.8 Absolute Monocytes (0.10 - 0.60 /CUMM) 0.7 H Absolute Eosinophils (0.0 - 0.7 /CUMM) 0 Absolute Basophils (0.0 - 0.2 /CUMM) 0 Urines Urine Color (YEL,AMB,STR) BLDY H Urine Clarity (CLEAR) CLDY H Urine pH (5.0 - 8.0) 6.5 Ur Specific [place] (1.001 - 1.035) 1.025 Urine Protein (NEG,<30 MG/DL) 100 H Urine Ketones (NEG) NEG Urine Nitrite (NEG) POS H Urine Bilirubin (NEG) NEG@ICTO Urine Urobilinogen (0.1 - 1.0 EU/dl) 1.0 Ur Leukocyte Esterase (NEG) SMALL H Ur Microscopic SEDIMENT EXAMINED Urine RBC (0 - 5 /HPF) PACKD H Urine WBC (0 - 2 /HPF) 10-15 H Ur Epithelial Cells (NONE,FEW) FEW Micro UA Comment MORE INFO: H Urine Hemoglobin (NEG) LARGE H Urine Glucose (N MG/DL) NEG Imaging Results: CT ABD/PELVIS 02/02/18 IMPRESSION: Soft tissue 6 cm mass in between the bladder and rectum measuring approximately 70 Hounsfield units. Likely hematoma. There is a suspicion of active bleeding occurring on CT axial image 74, series 2. Also visualized is free air in lower right pelvis and air within the soft tissue mass which could be secondary to surgery or bowel perforation. Correlation with history for surgery should be performed as patient is status post bladder mesh placement yesterday. Scattered ascending and transverse diverticula and diffuse sigmoid diverticulosis. There is no bowel obstruction seen except for moderate constipation. There is air in the bladder likely from catheterization. Again correlate with history. Assessment/Plan Assessment/Plan 72yo female with a hx of recent OH and DVT hx on Eliquis and ASA s/p uneventful cystocele repair with mesh with min bleeding intraop. She was restarted on her anticoagulation the night of her surgery given her min bleeding in the OR. She started to bleed and was admitted to med/surg for observation given her bleeding and decreasing HCT. This morning her HCT has stabilized at 35. Cont to watch and hold antocoagulation for now and control BP. Repeat HCT later this afternoon. Consult Acknowledgment - Thank you for your consult request.
[2018-02-03 11:00] VITALS: BP 172/102
[2018-02-03 11:29] LABS: ABSOLUTE BASOPHIL COUNT 0 /CUMM (0.0-0.2); ABSOLUTE EOSINOPHIL COUNT 0.1 /CUMM (0.0-0.7); ABSOLUTE GRANULOCYTE CT 13.8 /CUMM (1.4-6.5); ABSOLUTE LYMPH COUNT 1.4 /CUMM (1.2-3.4); ABSOLUTE MONOCYTE COUNT 0.9 /CUMM (0.10-0.60); BASOPHIL % 0.2 % (0.0-2.0); EOSINOPHIL % 0.6 % (0-5); GRANULOCYTE % 84.8 % (42.2-75.2); HEMATOCRIT 34.9 % (37-47); MEAN CORPUSCULAR HGB 27.9 PG (27.0-31.0); MEAN CORPUSCULAR HGB CONC 33.2 G/DL (33.0-37.0); MEAN CORPUSCULAR VOLUME 84.1 FL (81.0-99.0); MEAN PLATELET VOLUME 7.6 FL (7.4-10.4); PLATELET COUNT 337 /CUMM (130-400); RBC DISTRIBUTION WIDTH 14.7 % (11.5-14.5); RED BLOOD CELL CT 4.15 /CUMM (4.20-5.40); WHITE BLOOD CELL COUNT 16.2 /CUMM (4.8-10.8)
--- NOTE | 2018-02-03 12:09 | Event Note ---
Event Note Event Note: situation transferred patient to telemetry for continous monitoring Brief Patient is a 72 YO F with recent ME, prothrombin gene mutation presented with postoperative bleed. H&H was stable [facility] monitoring off anticoagulation. Urology on board, no need of any intervention now. Assessment Episode of stable angina Plan Improved with 1 dose of nitroglycerin Tele transfer for continous monitoring. Place cardiology consult follow up with troponin EKG unremarkable. Attending aware and agrees with the plan.
--- NOTE | 2018-02-03 13:01 | Cons- Cardiology ---
General Information and HPI Consulting Request Date of Consult: 02/03/18 Requested By: Eugenio GOODMAN,Re Clarke Reason for Consult: Chest pains History of Present Illness: 72yo woman with PMH significant for recent DE in 06/2017 (notes not available on EMR) diverticulitis, prothrombin gene mutation maintained on Eliquis and DVT hx s/p cystocele repair with mesh on 02/01/18 with minimal bleeding. The patient restarted her eliquis the night after surgery given her minimal bleeding in the OR, and began bleeding significantly a few hours later (10-12 pads yesterday, fewer today), with clots. Hb has remained relatively stable however and patient did not require transfusion. She has reported some retrosternal pressure today, in bed, without appreciable EKG changes. The DE history in 06/2017 is not clear (PCI? type of pain?). She is a patient of Dr Campa in cardiology. Allergies/Medications Allergies: Coded Allergies: atorvastatin (UNKNOWN 02/03/18) codeine (Intermediate, GI UPSET 02/02/18) Home Med List: Apixaban (Eliquis) 5 MG TABLET 1 TAB PO BID BLOOD THINNER (Reported) Aspirin (Aspirin*) 81 MG TAB.CHEW 1 TAB PO DAILY HEART HEALTH (Reported) Carvedilol 3.125 MG TABLET 1 TAB PO BID HEART (Reported) Omeprazole 40 MG CAPSULE. 1 CAP PO DAILY GI (Reported) Sennosides (Senna) 8.6 MG TABLET 1 TAB PO QPM CONSTIPATION (Reported) Simvastatin (Simvastatin*) 40 MG TABLET 1 TAB PO QPM CHOLESTEROL (Reported) Tramadol HCl (Unknown Strength) TABLET (Unknown Dose) PRN PAIN (Reported) Current Medications: Current Medications Sig/Alessio Start time Last Medication Dose Route Stop Time Status Admin Amlodipine Besylate 5 MG DAILY 02/03 1100 AC 02/03 PO 1130 Atorvastatin Calcium 40 MG 1700 02/03 1700 AC PO Bisacodyl 10 MG ONCE PRN 02/03 0215 AC 02/03 [place] 0251 Bisacodyl 5 MG DAILY 02/02 1737 AC 02/03 PO 0830 Carvedilol 3.125 MG BID 02/02 2100 AC 02/03 PO 0830 Ceftriaxone Sodium 0 .STK-MED ONE 02/03 1030 DC .ROUTE 02/03 1031 Ceftriaxone Sodium 0 .STK-MED ONE 02/02 1910 DC .ROUTE Ceftriaxone Sodium 1,000 MG ONCE ONE 02/02 1815 DC 02/02 IV 02/02 1816 1914 Hydromorphone HCl 1 MG ONCE ONE 02/03 0130 DC 02/03 PO 02/03 0131 0151 Hydromorphone HCl 0 .STK-MED ONE 02/02 1910 DC PO Hydromorphone HCl 2 MG Q8 PRN 02/02 1745 AC 02/02 PO 1914 Hydromorphone HCl 0 .STK-MED ONE 02/02 1654 DC .ROUTE Hydromorphone HCl 0.4 MG ONCE ONE 02/02 1630 DC 02/02 IV 02/02 1631 1658 Influenza Virus 0.5 ML ONCE ONE 02/03 0900 CAN Vaccine IM 02/03 0901 Morphine Sulfate 3 MG ONCE ONE 02/02 1530 DC 02/02 IV 02/02 1531 1552 Morphine Sulfate 0 .STK-MED ONE 02/02 1529 DC .ROUTE Nitroglycerin 0 .STK-MED ONE 02/03 1115 DC SL Nitroglycerin 0.4 MG ONCE ONE 02/03 1100 DC 02/03 SL 02/03 1101 1115 Omeprazole 40 MG DAILY AC 02/02 1702 AC 02/03 PO 0547 Ondansetron HCl 4 MG ONCE ONE 02/02 1530 DC 02/02 IV 02/02 1531 1532 Ondansetron HCl 0 .STK-MED ONE 02/02 1529 DC .ROUTE Oxycodone/ 1 TAB Q6P PRN 02/02 1745 AC 02/02 Acetaminophen PO 2228 Polyethylene Glycol 17 GM DAILY 02/02 1736 AC 02/03 PO 0831 Senna 187 MG AT BEDTIME 02/02 2100 AC 02/02 PO 2220 Past History Travel History Traveled to [place] past 21 day No Medical History Blood Transfusion Hx: No Neurological: NONE EENT: allergies, sinusitis Cardiovascular: hyperlipidemia, myocardial infarction Respiratory: NONE Gastrointestinal: diverticulitis Hepatic: NONE Renal: NONE Musculoskeletal: NONE Psychiatric: NONE Endocrine: NONE Blood Disorders: DVT Cancer(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 Home Who Do You Live With? child Smoking Status: Never Smoked ETOH Use: denies use Illicit Drug Use: denies illicit drug use Functional Ability ADLs Independent: dressing, eating, toileting, bathing. Ambulation: independent IADLs Independent: shopping, housework, finances, food prep, telephone, transportation , medication admin. Exam & Diagnostic Data Vital Signs and I&O Vital Signs Date Time Temp Pulse Resp B/P B/P Pulse O2 O2 Flow FiO2 Mean Ox Delivery Rate 02/03 1130 88 172/102 02/03 1100 98.4 88 20 172/102 95 Room Air 02/03 0830 94 156/102 02/03 0623 98.5 94 20 156/102 94 02/03 0046 92 160/101 94 02/02 2219 80 192/96 02/02 2155 98.4 80 20 192/96 99 Room Air 02/02 2037 98.2 81 18 157/84 99 02/02 1917 98.0 88 18 161/81 99 02/02 1725 98.8 90 20 161/83 98 Room Air 02/02 1530 98.2 88 18 198/98 98 Intake & Output 02/03 1600 02/03 0800 02/03 0000 02/02 1600 02/02 0800 02/02 0000 Intake Total 120 0 Output Total 50 600 0 Balance -50 -480 0 Intake, Oral 120 0 Number 0 Bowel Movements Output, Urine 50 600 0 Patient 117 lb 107 lb 112 lb Weight Weight Bed scale Bed scale Reported by Patient Measurement Method Physical Exam: General Appearance Alert, Oriented X3, Mild Distress HEENT Atraumatic, PERRLA, EOMI Neck Supple, No JVD, trachea midline Cardiovascular Normal S1, Normal S2, No Murmurs audible, no rub Lungs Clear to Auscultation, Normal Air Movement Abdomen Normal Bowel Sounds, Soft, lower abd tenderness Neurological Normal Gait, Normal Speech, Strength at 5/5 X4 Ext, Normal Tone, Extremities no edema, good capillary refill, No Cyanosis Labs/Greg Results: Laboratory Tests 02/03 02/03 1235 1115 Chemistry Sodium (137 - 145 mmol/L) 126 L Potassium (3.5 - 5.1 mmol/L) 4.0 Chloride (98 - 107 mmol/L) 91 L Carbon Dioxide (22 - 30 mmol/L) 25 Anion Gap (5 - 16) 10 BUN (7 - 17 mg/dL) 8 Creatinine (0.5 - 1.0 mg/dL) 0.4 L Estimated GFR (>60 ml/min) > 60 BUN/Creatinine Ratio (7 - 25 %) 20.0 Troponin I (< 0.11 ng/ml) 0.02 Coagulation D-Dimer High Sensitivty Pending Hematology CBC w Diff MAN DIFF ORDERED WBC (4.8 - 10.8 /CUMM) 16.2 H RBC (4.20 - 5.40 /CUMM) 4.15 L Hgb (12.0 - 16.0 G/DL) 11.6 L Hct (37 - 47 %) 34.9 L MCV (81.0 - 99.0 FL) 84.1 MCH (27.0 - 31.0 PG) 27.9 MCHC (33.0 - 37.0 G/DL) 33.2 RDW (11.5 - 14.5 %) 14.7 H Plt Count (130 - 400 /CUMM) 337 MPV (7.4 - 10.4 FL) 7.6 Gran % (42.2 - 75.2 %) 84.8 H Lymphocytes % (20.5 - 51.1 %) 8.8 L Monocytes % (1.7 - 9.3 %) 5.6 Eosinophils % (0 - 5 %) 0.6 Basophils % (0.0 - 2.0 %) 0.2 Absolute Granulocytes (1.4 - 6.5 /CUMM) 13.8 H Absolute Lymphocytes (1.2 - 3.4 /CUMM) 1.4 Absolute Monocytes (0.10 - 0.60 /CUMM) 0.9 H Absolute Eosinophils (0.0 - 0.7 /CUMM) 0.1 Absolute Basophils (0.0 - 0.2 /CUMM) 0 Platelet Estimate (ADEQUATE) VERIFIED BY SMEAR Anisocytosis 1+ 02/03 02/02 0824 1754 Chemistry Sodium (137 - 145 mmol/L) 127 L Potassium (3.5 - 5.1 mmol/L) 4.1 Chloride (98 - 107 mmol/L) 92 L Carbon Dioxide (22 - 30 mmol/L) 25 Anion Gap (5 - 16) 9 BUN (7 - 17 mg/dL) 9 Creatinine (0.5 - 1.0 mg/dL) 0.4 L Estimated GFR (>60 ml/min) > 60 BUN/Creatinine Ratio (7 - 25 %) 22.5 Hematology CBC w Diff NO MAN DIFF REQ NO MAN DIFF REQ WBC (4.8 - 10.8 /CUMM) 15.3 H 13.8 H RBC (4.20 - 5.40 /CUMM) 4.24 4.24 Hgb (12.0 - 16.0 G/DL) 12.0 11.9 L Hct (37 - 47 %) 35.7 L 35.6 L MCV (81.0 - 99.0 FL) 84.3 84.0 MCH (27.0 - 31.0 PG) 28.2 28.0 MCHC (33.0 - 37.0 G/DL) 33.5 33.3 RDW (11.5 - 14.5 %) 14.8 H 14.7 H Plt Count (130 - 400 /CUMM) 297 352 MPV (7.4 - 10.4 FL) 8.4 7.6 Gran % (42.2 - 75.2 %) 80.4 H 86.6 H Lymphocytes % (20.5 - 51.1 %) 12.4 L 10.0 L Monocytes % (1.7 - 9.3 %) 6.5 3.1 Eosinophils % (0 - 5 %) 0.3 0.1 Basophils % (0.0 - 2.0 %) 0.4 0.2 Absolute Granulocytes (1.4 - 6.5 /CUMM) 12.3 H 12.0 H Absolute Lymphocytes (1.2 - 3.4 /CUMM) 1.9 1.4 Absolute Monocytes (0.10 - 0.60 /CUMM) 1.0 H 0.4 Absolute Eosinophils (0.0 - 0.7 /CUMM) 0 0 Absolute Basophils (0.0 - 0.2 /CUMM) 0.1 0 15 15 1217 1200 Chemistry Sodium (137 - 145 mmol/L) 134 L Potassium (3.5 - 5.1 mmol/L) 4.2 Chloride (98 - 107 mmol/L) 97 L Carbon Dioxide (22 - 30 mmol/L) 28 Anion Gap (5 - 16) 10 BUN (7 - 17 mg/dL) 13 Creatinine (0.5 - 1.0 mg/dL) 0.6 Estimated GFR (>60 ml/min) > 60 BUN/Creatinine Ratio (7 - 25 %) 21.7 Glucose (65 - 99 mg/dL) 105 H Calcium (8.4 - 10.2 mg/dL) 9.2 Total Bilirubin (0.2 - 1.3 mg/dL) 0.5 AST (14 - 36 U/L) 18 ALT (9 - 52 U/L) 26 Alkaline Phosphatase (<127 U/L) 56 Total Protein (6.3 - 8.2 g/dL) 6.5 Albumin (3.5 - 5.0 g/dL) 3.9 Globulin (1.9 - 4.2 gm/dL) 2.6 Albumin/Globulin Ratio (1.1 - 2.2 %) 1.5 Coagulation PT (9.4 - 12.5 SEC) 15.1 H INR (0.90 - 1.19) 1.38 H APTT (25 - 37 SEC) 36 Hematology CBC w Diff NO MAN DIFF REQ WBC (4.8 - 10.8 /CUMM) 11.7 H RBC (4.20 - 5.40 /CUMM) 4.43 Hgb (12.0 - 16.0 G/DL) 12.4 Hct (37 - 47 %) 37.2 MCV (81.0 - 99.0 FL) 84.0 MCH (27.0 - 31.0 PG) 28.0 MCHC (33.0 - 37.0 G/DL) 33.4 RDW (11.5 - 14.5 %) 14.9 H Plt Count (130 - 400 /CUMM) 359 MPV (7.4 - 10.4 FL) 7.6 Gran % (42.2 - 75.2 %) 77.8 H Lymphocytes % (20.5 - 51.1 %) 15.7 L Monocytes % (1.7 - 9.3 %) 5.7 Eosinophils % (0 - 5 %) 0.4 Basophils % (0.0 - 2.0 %) 0.4 Absolute Granulocytes (1.4 - 6.5 /CUMM) 9.1 H Absolute Lymphocytes (1.2 - 3.4 /CUMM) 1.8 Absolute Monocytes (0.10 - 0.60 /CUMM) 0.7 H Absolute Eosinophils (0.0 - 0.7 /CUMM) 0 Absolute Basophils (0.0 - 0.2 /CUMM) 0 Urines Urine Color (YEL,AMB,STR) BLDY H Urine Clarity (CLEAR) CLDY H Urine pH (5.0 - 8.0) 6.5 Ur Specific [place] (1.001 - 1.035) 1.025 Urine Protein (NEG,<30 MG/DL) 100 H Urine Ketones (NEG) NEG Urine Nitrite (NEG) POS H Urine Bilirubin (NEG) NEG@ICTO Urine Urobilinogen (0.1 - 1.0 EU/dl) 1.0 Ur Leukocyte Esterase (NEG) SMALL H Ur Microscopic SEDIMENT EXAMINED Urine RBC (0 - 5 /HPF) PACKD H Urine WBC (0 - 2 /HPF) 10-15 H Ur Epithelial Cells (NONE,FEW) FEW Micro UA Comment MORE INFO: H Urine Hemoglobin (NEG) LARGE H Urine Glucose (N MG/DL) NEG Assessment/Plan Assessment/Plan Atypical chest pains post op cystocele repair day # 2 complicated by vaginal bleeding upon reintroduction of eliquis for history of DVT/prothrombin mutation. Patient has a history of CAD, details unclear at this time. Hypertension. Significant pain. Plan: troponins to be repeated. EKG if chest pains reoccur. sublingual nitro if chest pain. Increase carvedilol to 12.5 mg PO bid. Increase norvasc to 10 mg PO daily. Optimize pain control. no NSAIDS or antiplatelets for the moment. Once bleeding is resolved, begin anticoagulation with heparin drip. Encourage movement in bed for now to avoid DVT, walking if tolerated. Consult Acknowledgment - Thank you for your consult request.
[2018-02-03 13:33] VITALS: BP 162/90
[2018-02-03 19:57] LABS: ABSOLUTE BASOPHIL COUNT 0 /CUMM (0.0-0.2); ABSOLUTE EOSINOPHIL COUNT 0.2 /CUMM (0.0-0.7); ABSOLUTE GRANULOCYTE CT 10.9 /CUMM (1.4-6.5); ABSOLUTE LYMPH COUNT 1.9 /CUMM (1.2-3.4); ABSOLUTE MONOCYTE COUNT 1.2 /CUMM (0.10-0.60); BASOPHIL % 0.1 % (0.0-2.0); EOSINOPHIL % 1.2 % (0-5); GRANULOCYTE % 76.8 % (42.2-75.2); HEMATOCRIT 33.1 % (37-47); MEAN CORPUSCULAR HGB 28.3 PG (27.0-31.0); MEAN CORPUSCULAR HGB CONC 33.7 G/DL (33.0-37.0); MEAN CORPUSCULAR VOLUME 83.9 FL (81.0-99.0); MEAN PLATELET VOLUME 7.9 FL (7.4-10.4); PLATELET COUNT 359 /CUMM (130-400); RBC DISTRIBUTION WIDTH 14.9 % (11.5-14.5); RED BLOOD CELL CT 3.94 /CUMM (4.20-5.40); WHITE BLOOD CELL COUNT 14.3 /CUMM (4.8-10.8)
[2018-02-03 22:10] VITALS: BP 124/84
[2018-02-04 07:09] VITALS: BP 128/78
--- NOTE | 2018-02-04 07:16 | PN- Housestaff ---
Terry Vieyra 02/04/18 0716: Subjective Follow-up For: Bleeding s/p cystocele repair Hx. DVT/Prothrombin mutation Subjective: Afebrile overnight. Patient is seen and examined this morning. Patient reports some dysuria, urgency, and frequency. Patient's previous urine culture was negative. Patient also reports some mild nausea but otherwise has been encouraging herself to eat. Patient reports some mild vaginal spotting i.e. bleeding. Patient denies any chest pain, palpitations, fevers, chills, and fatigue. Patient denies any other complaints. Review of Systems Constitutional: Reports: see HPI. Objective Last 24 Hrs of Vital Signs/I&O Vital Signs Date Time Temp Pulse Resp B/P B/P Pulse O2 O2 Flow FiO2 Mean Ox Delivery Rate 02/04 1344 98.2 76 18 92/56 95 Room Air 02/04 1115 77 124/76 02/04 0833 114 124/80 02/04 0832 114 124/80 02/04 0709 98.3 79 16 128/78 96 Room Air 02/03 2210 98.4 92 12 124/84 94 Room Air 02/03 2100 Room Air 02/03 2026 100 110/60 Physical Exam General Appearance: Alert, Oriented X3, Cooperative, No Acute Distress Skin: No Rashes, No Breakdown Skin Temp/Moisture Exam: Warm/Dry HEENT: Atraumatic Neck: Supple Cardiovascular: Regular Rate, Normal S1, Normal S2 Lungs: Clear to Auscultation Abdomen: Soft, No Tenderness Neurological: Normal Speech Extremities: No Edema, Normal Pulses Assessment/Plan Assessment: 72-year-old female with past medical history of recent VA in 2018, diverticulitis, prothrombin gene mutation maintained on Abixaban. She is coming in post procedure cystocele repair with mesh with genitourinary bleeding. Vitals on presentation stable except elevated blood pressure repeat readings 161 /83 Admitting labs are significant for leukocytosis of 11.7, hyponatremia 134, INR of 1.38 UA is positive for RBCs, nitrate positive and 10-15 WBCs Patient is being admitted to general medicine for further treatment and evaluation of postop complications #Genitourinary bleeding status post cystocele repair and bladder mesh -Patient is complaining of increasing abdominal pain and reports 2-3 PADS changed because of ongoing bleeding. The CT scan done in the ED was positive for small hematoma. The patient is hemodynamically stable at this point -We'll repeat H&H and f/u , call Dr. Connelly if there is a drop in H/H -Type and screen with with cardiac history transfusion goal will be Hb less than 8 -Adequate analgesia -Holding eliquis for now -The small hematoma in is normal postoperatively. We'll continue to monitor for now -Patient has recent instrumentation and will give her 1 dose of ceftriaxone in setting of nitrate positive -f/u with dr Connelly; recommended it is feasible to restart anticoagulation #Prothrombin gene mutation -Patient has history of hypercoagulable state with Prothrombin gene mutation -We held anticoagulation pending clinical status and H/H; Urology seeing patient and recommended it is feasible to restart anticoagulation -Heparin 25,000 Unit IV started 02/04 #History of recent VA -We hold aspirin setting of active bleeding -Continue carvedilol and statin -Continue Amlodipine #History of GERD -Continue PPI #Hypertension hyperlipidemia -Continue carvedilol and statin Heart healthy diet DVT prophylaxis Code Status: FC Problem List: 1. Postoperative vaginal bleeding following genitourinary procedure Pain Ratin Pain Location: na Pain Goal: Remain pain free Pain Plan: na Tomorrow's Labs & Rationales: routine Lucian Galloway MD 02/04/18 1318: Attending MD Review Statement Attending Statement Attending MD Statement: examined this patient, discuss w/resident/PA/RN BIRTHING, agreed w/resident/PA/RN BIRTHING, reviewed EMR data (avail) Attending Assessment/Plan: 72F PMH VA in 06/2017, prothrombin gene mutation maintained on Eliquis and DVT hx s/p cystocele repair with mesh on 02/01/18 with post-operative bleeding when Eliquis was restarted. Patient feels well today and has no complaints. She has no abdominal or pelvic pain and has very little bleeding. Her Hgb and vitals are stable. 1. Post-operative bleeding 2. Prothrombin gene mutation 3. History of VA Plan - Continue on telemetry - Will speak with urology and start heparin drip in the afternoon, monitor for bleeding - CBC daily, more frequently if bleeding - Follow cardiology recommendations - Continue to hold ASA for now - Continue remaining home medications
[2018-02-04 09:25] LABS: ABSOLUTE BASOPHIL COUNT 0 /CUMM (0.0-0.2); ABSOLUTE EOSINOPHIL COUNT 0.2 /CUMM (0.0-0.7); ABSOLUTE GRANULOCYTE CT 8.8 /CUMM (1.4-6.5); ABSOLUTE MONOCYTE COUNT 0.9 /CUMM (0.10-0.60); BASOPHIL % 0.3 % (0.0-2.0); EOSINOPHIL % 1.4 % (0-5); GRANULOCYTE % 73.9 % (42.2-75.2); HEMATOCRIT 32.2 % (37-47); MEAN CORPUSCULAR HGB 28.2 PG (27.0-31.0); MEAN CORPUSCULAR HGB CONC 33.8 G/DL (33.0-37.0); MEAN CORPUSCULAR VOLUME 83.5 FL (81.0-99.0); MEAN PLATELET VOLUME 7.9 FL (7.4-10.4); PLATELET COUNT 334 /CUMM (130-400); RBC DISTRIBUTION WIDTH 14.7 % (11.5-14.5); RED BLOOD CELL CT 3.85 /CUMM (4.20-5.40); WHITE BLOOD CELL COUNT 11.9 /CUMM (4.8-10.8)
--- NOTE | 2018-02-04 10:58 | PN- Cardiology ---
Subjective Subjective: The patient reports that she is feeling well. No chest pain. No palpitations. No shortness of breath. No diaphoresis. No nausea or vomiting. No lightheadedness or dizziness. Objective Vital Signs and I&Os Vital Signs Date Time Temp Pulse Resp B/P B/P Pulse O2 O2 Flow FiO2 Mean Ox Delivery Rate 02/05 0833 114 124/80 02/04 0832 114 124/80 02/04 0709 98.3 79 16 128/78 96 Room Air 02/03 2210 98.4 92 12 124/84 94 Room Air 02/03 2100 Room Air 02/03 2026 100 110/60 02/03 1333 98.7 90 18 162/90 93 Room Air 02/03 1130 88 172/102 02/03 1100 98.4 88 20 172/102 95 Room Air Intake & Output 02/04 1600 02/04 0800 02/04 0000 02/03 1600 02/03 0800 02/03 0000 Intake Total 240 120 0 Output Total 50 600 0 Balance 190 -480 0 Intake, Oral 240 120 0 Number 1 0 Bowel Movements Output, Urine 50 600 0 Patient 117 lb 107 lb Weight Weight Bed scale Bed scale Measurement Method Physical Exam: Gen: NAD HEENT: normal Lungs: clear to auscultation, normal resp. effort Heart: RRR, S1, S2, no murmurs Abdomen: Soft, nontender, no masses Extremities: No clubbing, cyanosis, or edema. Neuro: Alert and oriented x 3, cranial nerves intact Current Medications: Current Medications Sig/Alessio Start time Last Medication Dose Route Stop Time Status Admin Amlodipine Besylate 10 MG DAILY 02/04 09 AC 02/04 PO 0833 Amlodipine Besylate 5 MG DAILY 02/03 1100 DC 02/03 PO 1130 Atorvastatin Calcium 40 MG 1700 02/03 1700 DC PO Bisacodyl 10 MG ONCE PRN 02/03 0215 AC 02/03 AR 0251 Bisacodyl 5 MG DAILY 02/02 1737 AC 02/03 PO 0830 Carvedilol 12.5 MG BID 02/04 0900 AC 02/04 PO 0832 Carvedilol 3.125 MG BID 02/02 2100 DC 02/03 PO 2026 Hydromorphone HCl 2 MG Q8 PRN 02/02 1745 AC 02/04 PO 0605 Nitroglycerin 0 .STK-MED ONE 02/03 1115 DC SL Nitroglycerin 0.4 MG ONCE ONE 02/03 1100 DC 02/03 SL 02/03 1101 1115 Omeprazole 40 MG DAILY 02/02 1702 02/04 PO 0602 Ondansetron HCl 0 .STK-MED ONE 02/04 1041 DC .ROUTE Ondansetron HCl 4 MG ONCE ONE 02/03 2015 DC 02/04 IV 02/04 2016 104 Oxycodone/ 1 TAB Q6P PRN 02/02 174 MA 02/03 Acetaminophen PO 1721 Polyethylene Glycol 17 GM DAILY 02/02 1736 02/03 PO 0831 Senna 187 MG AT BEDTIME 02/02 2100 02/03 PO 2025 Simvastatin 40 MG DAILY@1700 02/03 174 02/03 PO 2025 Results Last 48 Hrs of Labs/Mics: Laboratory Tests 02/04/18 0903: Anion Gap 8, Estimated GFR > 60, BUN/Creatinine Ratio 22.0, CBC w Diff NO MAN DIFF REQ, RBC 3.85 L, MCV 83.5, MCH 28.2, MCHC 33.8, RDW 14.7 H, MPV 7.9, Gran % 73.9, Lymphocytes % 16.8 L, Monocytes % 7.6, Eosinophils % 1.4, Basophils % 0.3, Absolute Granulocytes 8.8 H, Absolute Lymphocytes 2.0, Absolute Monocytes 0.9 H, Absolute Eosinophils 0.2, Absolute Basophils 0 02/04/18 0853: Urine Color YEL, Urine Clarity CLEAR, Urine pH 6.5, Ur Specific [place] 1.010, Urine Protein NEG, Urine Ketones NEG, Urine Nitrite NEG, Urine Bilirubin NEG, Urine Urobilinogen 0.2, Ur Leukocyte Esterase TRACE H, Ur Microscopic SEDIMENT EXAMINED, Urine RBC 25-50 H, Urine WBC 1-3 H, Ur Epithelial Cells FEW, Urine Bacteria FEW H, Urine Hemoglobin LARGE H, Urine Glucose NEG 02/03/18 1920: CBC w Diff NO MAN DIFF REQ, RBC 3.94 L, MCV 83.9, MCH 28.3, MCHC 33.7, RDW 14.9 H, MPV 7.9, Gran % 76.8 H, Lymphocytes % 13.6 L, Monocytes % 8.3, Eosinophils % 1.2, Basophils % 0.1, Absolute Granulocytes 10.9 H, Absolute Lymphocytes 1.9, Absolute Monocytes 1.2 H, Absolute Eosinophils 0.2, Absolute Basophils 0 02/03/18 1755: Troponin I 0.02 02/03/18 1235: D-Dimer High Sensitivty 327 H 02/03/18 1115: Anion Gap 10, Estimated GFR > 60, BUN/Creatinine Ratio 20.0, Troponin I 0.02, CBC w Diff MAN DIFF ORDERED, RBC 4.15 L, MCV 84.1, MCH 27.9, MCHC 33.2, RDW 14.7 H, MPV 7.6, Gran % 84.8 H, Lymphocytes % 8.8 L, Monocytes % 5.6, Eosinophils % 0.6, Basophils % 0.2, Absolute Granulocytes 13.8 H, Absolute Lymphocytes 1.4, Absolute Monocytes 0.9 H, Absolute Eosinophils 0.1, Absolute Basophils 0, Platelet Estimate VERIFIED BY SMEAR, Anisocytosis 1+ 02/03/18 0824: Anion Gap 9, Estimated GFR > 60, BUN/Creatinine Ratio 22.5, CBC w Diff NO MAN DIFF REQ, RBC 4.24, MCV 84.3, MCH 28.2, MCHC 33.5, RDW 14.8 H, MPV 8.4, Gran % 80.4 H, Lymphocytes % 12.4 L, Monocytes % 6.5, Eosinophils % 0.3, Basophils % 0.4, Absolute Granulocytes 12.3 H, Absolute Lymphocytes 1.9, Absolute Monocytes 1.0 H, Absolute Eosinophils 0, Absolute Basophils 0.1 02/02/18 1754: CBC w Diff NO MAN DIFF REQ, RBC 4.24, MCV 84.0, MCH 28.0, MCHC 33.3, RDW 14.7 H , MPV 7.6, Gran % 86.6 H, Lymphocytes % 10.0 L, Monocytes % 3.1, Eosinophils % 0.1, Basophils % 0.2, Absolute Granulocytes 12.0 H, Absolute Lymphocytes 1.4, Absolute Monocytes 0.4, Absolute Eosinophils 0, Absolute Basophils 0 02/02/18 1217: Urine Color BLDY H, Urine Clarity CLDY H, Urine pH 6.5, Ur Specific [place] 1.025, Urine Protein 100 H, Urine Ketones NEG, Urine Nitrite POS H, Urine Bilirubin NEG@ICTO, Urine Urobilinogen 1.0, Ur Leukocyte Esterase SMALL H, Ur Microscopic SEDIMENT EXAMINED, Urine RBC PACKD H, Urine WBC 10-15 H, Ur Epithelial Cells FEW, Micro UA Comment MORE INFO: H, Urine Hemoglobin LARGE H, Urine Glucose NEG 02/02/18 1200: Anion Gap 10, Estimated GFR > 60, BUN/Creatinine Ratio 21.7, Glucose 105 H, Calcium 9.2, Total Bilirubin 0.5, AST 18, ALT 26, Alkaline Phosphatase 56, Total Protein 6.5, Albumin 3.9, Globulin 2.6, Albumin/Globulin Ratio 1.5, PT 15.1 H, INR 1.38 H, APTT 36, CBC w Diff NO MAN DIFF REQ, RBC 4.43, MCV 84.0, MCH 28.0, MCHC 33.4, RDW 14.9 H, MPV 7.6, Gran % 77.8 H, Lymphocytes % 15.7 L, Monocytes % 5.7, Eosinophils % 0.4, Basophils % 0.4, Absolute Granulocytes 9.1 H, Absolute Lymphocytes 1.8, Absolute Monocytes 0.7 H, Absolute Eosinophils 0, Absolute Basophils 0 Recent Imaging Studies: CT scan of the abdomen and pelvis: Soft tissue 6 cm mass in between the bladder and rectum measuring approximately 70 Hounsfield units. Likely hematoma. There is a suspicion of active bleeding occurring on CT axial image 74, series 2. Also visualized is free air in lower right pelvis and air within the soft tissue mass which could be secondary to surgery or bowel perforation. Correlation with history for surgery should be performed as patient is status post bladder mesh placement yesterday. Scattered ascending and transverse diverticula and diffuse sigmoid diverticulosis. There is no bowel obstruction seen except for moderate constipation. There is air in the bladder likely from catheterization. Again correlate with history. Results were discussed by phone with Sean HOLBROOK in ER at 3:00 PM Assessment/Plan Assessment/Plan Records reviewed. The patient presented in June [address] elevation myocardial infarction. She was transferred to [facility]. The patient was noted to have a distal RCA lesion. Angioplasty was performed resulting in only ROHIT I flow. She was discharged on Brilinta and aspirin. She reports that since that time the Brilinta has been discontinued, and prior to admission she was on Eliquis and aspirin Assessment: 1. CAD, status post myocardial infarction in June 2. Status post cystocele repair 3. Vaginal bleeding noted on reintroduction of Eliquis 4. Hypertension Plan: * Once bleeding has resolved, restart anticoagulation with heparin drip, which will be transitioned to Eliquis prior to discharge * Restart low-dose aspirin once leading has resolved and cleared by surgery * Continue other cardiac medications Continue telemetry? Yes
[2018-02-04 11:15] VITALS: BP 124/76
[2018-02-04 13:44] VITALS: BP 92/56
--- NOTE | 2018-02-04 15:56 | PN- Urology ---
Subjective Subjective: Pt is feeling better. Denies any CP today. She has noticed only blood when she wipes with voiding. None on her pads now. She has the rectal pain but is mildly improved. She has not had a good BM yet but she has also not been eating like she normally would. She is voiding without issue. Review of Systems Constitutional: Reports: no symptoms. Cardiovascular: Reports: no symptoms. Respiratory: Reports: no symptoms. Gastrointestinal: Reports: no symptoms, abdominal pain (abd pain less). Genitourinary: Reports: no symptoms. Musculoskeletal: Reports: no symptoms. Skin: Reports: no symptoms. Neurological/Psychological: Reports: no symptoms. Hematologic/Endocrine: Reports: bleeding (only with wiping when voids). Immunologic/Allergic: Reports: no symptoms. Objective Vital Signs and I&Os Vital Signs Date Time Temp Pulse Resp B/P B/P Pulse O2 O2 Flow FiO2 Mean Ox Delivery Rate 02/04 1344 98.2 76 18 92/56 95 Room Air 02/04 1115 77 124/76 02/04 0833 114 124/80 02/04 0832 114 124/80 02/04 0709 98.3 79 16 128/78 96 Room Air 02/03 2210 98.4 92 12 124/84 94 Room Air 02/03 2100 Room Air 02/03 2026 100 110/60 Intake & Output 02/04 1600 02/04 0800 02/04 0000 02/03 1600 02/03 0800 02/03 0000 Intake Total 240 120 0 Output Total 50 600 0 Balance 190 -480 0 Intake, Oral 240 120 0 Number 1 0 Bowel Movements Output, Urine 50 600 0 Patient 53.099 kg 48.308 kg Weight Weight Bed scale Bed scale Measurement Method Physical Exam General Appearance: well developed/nourished, no apparent distress, alert, awake , comfortable Head: atraumatic, normal appearance Ears, Nose, Throat: normal ENT inspection Neck: normal inspection Respiratory: no respiratory distress Abdomen: soft, non-tender Rectal: deferred Neurologic/Psychiatric: awake, alert, oriented x 3 Skin: intact, normal color, warm/dry Current Medications: Current Medications Sig/Alessio Start time Last Medication Dose Route Stop Time Status Admin Acetaminophen 650 MG Q4P PRN 02/04 1500 AC PO Amlodipine Besylate 10 MG DAILY 02/04 0900 AC 02/04 PO 0833 Amlodipine Besylate 5 MG DAILY 02/03 1100 DC 02/03 PO 1130 Atorvastatin Calcium 40 MG 1700 02/03 1700 DC PO Bisacodyl 10 MG ONCE PRN 02/03 0215 DC 02/03 MA 0251 Bisacodyl 5 MG DAILY 02/02 1737 DC 02/03 PO 0830 Carvedilol 12.5 MG BID 02/04 0900 AC 02/04 PO 0832 Carvedilol 3.125 MG BID 02/02 2100 DC 02/03 PO 2026 Heparin Sodium 25,000 UNIT Q24H 02/04 1345 AC (Porcine) IV Sodium Chloride 500 ML Hydromorphone HCl 2 MG Q8 PRN 02/02 1745 DC 02/04 PO 0605 Omeprazole 40 MG DAILY AC 02/02 1702 AC 02/04 PO 0602 Ondansetron HCl 0 .STK-MED ONE 02/04 1041 DC .ROUTE Ondansetron HCl 4 MG ONCE ONE 02/03 2015 DC 02/04 IV 02/03 2016 1046 Oxycodone/ 1 TAB Q6P PRN 02/02 174 DC 02/03 Acetaminophen PO 1721 Polyethylene Glycol 17 GM DAILY PRN 02/04 1334 AC PO Polyethylene Glycol 17 GM DAILY 02/02 1736 DC 02/03 PO 0831 Senna 187 MG AT BEDTIME 02/02 2100 DC 02/03 PO 202 Simvastatin 40 MG DAILY@1700 02/03 1745 AC 02/03 PO 2025 Results Last 48 Hours of Labs: Laboratory Tests 02/04 02/04 0903 0853 Chemistry Sodium (137 - 145 mmol/L) 129 L Potassium (3.5 - 5.1 mmol/L) 3.9 Chloride (98 - 107 mmol/L) 94 L Carbon Dioxide (22 - 30 mmol/L) 26 Anion Gap (5 - 16) 8 BUN (7 - 17 mg/dL) 11 Creatinine (0.5 - 1.0 mg/dL) 0.5 Estimated GFR (>60 ml/min) > 60 BUN/Creatinine Ratio (7 - 25 %) 22.0 Hematology CBC w Diff NO MAN DIFF REQ WBC (4.8 - 10.8 /CUMM) 11.9 H RBC (4.20 - 5.40 /CUMM) 3.85 L Hgb (12.0 - 16.0 G/DL) 10.9 L Hct (37 - 47 %) 32.2 L MCV (81.0 - 99.0 FL) 83.5 MCH (27.0 - 31.0 PG) 28.2 MCHC (33.0 - 37.0 G/DL) 33.8 RDW (11.5 - 14.5 %) 14.7 H Plt Count (130 - 400 /CUMM) 334 MPV (7.4 - 10.4 FL) 7.9 Gran % (42.2 - 75.2 %) 73.9 Lymphocytes % (20.5 - 51.1 %) 16.8 L Monocytes % (1.7 - 9.3 %) 7.6 Eosinophils % (0 - 5 %) 1.4 Basophils % (0.0 - 2.0 %) 0.3 Absolute Granulocytes (1.4 - 6.5 /CUMM) 8.8 H Absolute Lymphocytes (1.2 - 3.4 /CUMM) 2.0 Absolute Monocytes (0.10 - 0.60 /CUMM) 0.9 H Absolute Eosinophils (0.0 - 0.7 /CUMM) 0.2 Absolute Basophils (0.0 - 0.2 /CUMM) 0 Urines Urine Color (YEL,AMB,STR) YEL Urine Clarity (CLEAR) CLEAR Urine pH (5.0 - 8.0) 6.5 Ur Specific [place] (1.001 - 1.035) 1.010 Urine Protein (NEG,<30 MG/DL) NEG Urine Ketones (NEG) NEG Urine Nitrite (NEG) NEG Urine Bilirubin (NEG) NEG Urine Urobilinogen (0.1 - 1.0 EU/dl) 0.2 Ur Leukocyte Esterase (NEG) TRACE H Ur Microscopic SEDIMENT EXAMINED Urine RBC (0 - 5 /HPF) 25-50 H Urine WBC (0 - 2 /HPF) 1-3 H Ur Epithelial Cells (NONE,FEW) FEW Urine Bacteria (NEG/NONE) FEW H Urine Hemoglobin (NEG) LARGE H Urine Glucose (N MG/DL) NEG 02/03 02/03 02/03 1920 1755 1235 Chemistry Troponin I (< 0.11 ng/ml) 0.02 Coagulation D-Dimer High Sensitivty (0 - 243 ng/ml) 327 H Hematology CBC w Diff NO MAN DIFF REQ WBC (4.8 - 10.8 /CUMM) 14.3 H RBC (4.20 - 5.40 /CUMM) 3.94 L Hgb (12.0 - 16.0 G/DL) 11.2 L Hct (37 - 47 %) 33.1 L MCV (81.0 - 99.0 FL) 83.9 MCH (27.0 - 31.0 PG) 28.3 MCHC (33.0 - 37.0 G/DL) 33.7 RDW (11.5 - 14.5 %) 14.9 H Plt Count (130 - 400 /CUMM) 359 MPV (7.4 - 10.4 FL) 7.9 Gran % (42.2 - 75.2 %) 76.8 H Lymphocytes % (20.5 - 51.1 %) 13.6 L Monocytes % (1.7 - 9.3 %) 8.3 Eosinophils % (0 - 5 %) 1.2 Basophils % (0.0 - 2.0 %) 0.1 Absolute Granulocytes (1.4 - 6.5 /CUMM) 10.9 H Absolute Lymphocytes (1.2 - 3.4 /CUMM) 1.9 Absolute Monocytes (0.10 - 0.60 /CUMM) 1.2 H Absolute Eosinophils (0.0 - 0.7 /CUMM) 0.2 Absolute Basophils (0.0 - 0.2 /CUMM) 0 02/03 02/03 1115 0824 Chemistry Sodium (137 - 145 mmol/L) 126 L 127 L Potassium (3.5 - 5.1 mmol/L) 4.0 4.1 Chloride (98 - 107 mmol/L) 91 L 92 L Carbon Dioxide (22 - 30 mmol/L) 25 25 Anion Gap (5 - 16) 10 9 BUN (7 - 17 mg/dL) 8 9 Creatinine (0.5 - 1.0 mg/dL) 0.4 L 0.4 L Estimated GFR (>60 ml/min) > 60 > 60 BUN/Creatinine Ratio (7 - 25 %) 20.0 22.5 Troponin I (< 0.11 ng/ml) 0.02 Hematology CBC w Diff MAN DIFF ORDERED NO MAN DIFF REQ WBC (4.8 - 10.8 /CUMM) 16.2 H 15.3 H RBC (4.20 - 5.40 /CUMM) 4.15 L 4.24 Hgb (12.0 - 16.0 G/DL) 11.6 L 12.0 Hct (37 - 47 %) 34.9 L 35.7 L MCV (81.0 - 99.0 FL) 84.1 84.3 MCH (27.0 - 31.0 PG) 27.9 28.2 MCHC (33.0 - 37.0 G/DL) 33.2 33.5 RDW (11.5 - 14.5 %) 14.7 H 14.8 H Plt Count (130 - 400 /CUMM) 337 297 MPV (7.4 - 10.4 FL) 7.6 8.4 Gran % (42.2 - 75.2 %) 84.8 H 80.4 H Lymphocytes % (20.5 - 51.1 %) 8.8 L 12.4 L Monocytes % (1.7 - 9.3 %) 5.6 6.5 Eosinophils % (0 - 5 %) 0.6 0.3 Basophils % (0.0 - 2.0 %) 0.2 0.4 Absolute Granulocytes (1.4 - 6.5 /CUMM) 13.8 H 12.3 H Absolute Lymphocytes (1.2 - 3.4 /CUMM) 1.4 1.9 Absolute Monocytes (0.10 - 0.60 /CUMM) 0.9 H 1.0 H Absolute Eosinophils (0.0 - 0.7 /CUMM) 0.1 0 Absolute Basophils (0.0 - 0.2 /CUMM) 0 0.1 Platelet Estimate (ADEQUATE) VERIFIED BY SMEAR Anisocytosis 02/02 7874 Hematology CBC w Diff NO MAN DIFF REQ WBC (4.8 - 10.8 /CUMM) 13.8 H RBC (4.20 - 5.40 /CUMM) 4.24 Hgb (12.0 - 16.0 G/DL) 11.9 L Hct (37 - 47 %) 35.6 L MCV (81.0 - 99.0 FL) 84.0 MCH (27.0 - 31.0 PG) 28.0 MCHC (33.0 - 37.0 G/DL) 33.3 RDW (11.5 - 14.5 %) 14.7 H Plt Count (130 - 400 /CUMM) 352 MPV (7.4 - 10.4 FL) 7.6 Gran % (42.2 - 75.2 %) 86.6 H Lymphocytes % (20.5 - 51.1 %) 10.0 L Monocytes % (1.7 - 9.3 %) 3.1 Eosinophils % (0 - 5 %) 0.1 Basophils % (0.0 - 2.0 %) 0.2 Absolute Granulocytes (1.4 - 6.5 /CUMM) 12.0 H Absolute Lymphocytes (1.2 - 3.4 /CUMM) 1.4 Absolute Monocytes (0.10 - 0.60 /CUMM) 0.4 Absolute Eosinophils (0.0 - 0.7 /CUMM) 0 Absolute Basophils (0.0 - 0.2 /CUMM) 0 Assessment/Plan Assessment/Plan 72 yo female with a hx of recent MA in 07/08 and DVT hx on anticoagulants s/p cystocele repair with mesh and postop bleeding after eliquis and asa started postop night. She developed a pelvic hematoma and later with CP relieved by NG. She is improving. Her Hct has trended down to 32 today. No longer spotting but caution the restart of anticoagulant for a full 24hrs from active bleeding. Her HCT has trended down to 32 from preop of 40. Core Measures Venous Thromboembolism VTE Risk Factors Age>40 No Mechanical VTE Prophylaxis d/t N/A MechProphylax Ordered No VTE Pharm Prophylaxis d/t Other (active bleeding) Comment: postop bleeding
[2018-02-04 23:58] VITALS: BP 98/70
[2018-02-05 06:23] VITALS: BP 104/64
--- NOTE | 2018-02-05 07:39 | PN- Housestaff ---
Terry Vieyra 02/05/18 0739: Subjective Follow-up For: Bleeding s/p cystocele repair Hx. DVT/Prothrombin mutation Subjective: Afebrile overnight. Patient is seen and examined this morning. Patient states she still experiences very mild vaginal spotting, that only is apparent as pinkish blood. Patient states she does not have any lightheadedness, fatigue, dizziness, chest pain, palpitations, and shortness of breath. We will follow up with Dr. Connelly regarding restarting her anticoagulation. Patient otherwise is doing well today. Review of Systems Constitutional: Reports: see HPI. Objective Last 24 Hrs of Vital Signs/I&O Vital Signs Date Time Temp Pulse Resp B/P B/P Pulse O2 O2 Flow FiO2 Mean Ox Delivery Rate 02/05 0623 97.7 73 20 104/64 97 Room Air 02/04 2358 98.6 73 20 98/70 94 Room Air 02/04 2119 66 90/50 02/04 1344 98.2 76 18 92/56 95 Room Air 02/04 1115 77 124/76 02/04 0833 114 124/80 02/04 0832 114 124/80 Intake & Output 02/05 1600 02/05 0800 02/05 0000 Intake Total 120 120 Output Total Balance 120 120 Intake, Oral 120 120 Patient 118 lb Weight Physical Exam General Appearance: Alert, Oriented X3, Cooperative, No Acute Distress Skin: No Rashes, No Breakdown Skin Temp/Moisture Exam: Warm/Dry HEENT: Atraumatic Neck: Supple Cardiovascular: Regular Rate, Normal S1, Normal S2 Lungs: Clear to Auscultation Abdomen: Soft, No Tenderness Neurological: Normal Speech Extremities: No Edema, Normal Pulses Assessment/Plan Assessment: 72-year-old female with past medical history of recent MD in 2018, diverticulitis, prothrombin gene mutation maintained on Abixaban. She is coming in post procedure cystocele repair with mesh with genitourinary bleeding. Vitals on presentation stable except elevated blood pressure repeat readings 161 /83 Admitting labs are significant for leukocytosis of 11.7, hyponatremia 134, INR of 1.38 UA is positive for RBCs, nitrate positive and 10-15 WBCs Patient is being admitted to general medicine for further treatment and evaluation of postop complications #Genitourinary bleeding status post cystocele repair and bladder mesh -Patient is complaining of increasing abdominal pain and reports 2-3 PADS changed because of ongoing bleeding. The CT scan done in the ED was positive for small hematoma. The patient is hemodynamically stable at this point -We'll repeat H&H and f/u , call Dr. Connelly if there is a drop in H/H -Type and screen with with cardiac history transfusion goal will be Hb less than 8 -Holding eliquis for now -f/u with dr Connelly; holding Heparin currently #Prothrombin gene mutation -Patient has history of hypercoagulable state with Prothrombin gene mutation -We held anticoagulation pending clinical status and H/H; Urology seeing patient and recommended to hold Heparin until H/H improves #History of recent MD -We hold aspirin setting of active bleeding -Continue carvedilol and statin -Continue Amlodipine #History of GERD -Continue PPI #Hypertension hyperlipidemia -Continue carvedilol and statin Heart healthy diet DVT prophylaxis Code Status: FC Problem List: 1. Postoperative vaginal bleeding following genitourinary procedure Pain Ratin Pain Location: na Pain Goal: Remain pain free Pain Plan: na Tomorrow's Labs & Rationales: routine Lucian Galloway MD 02/05/18 1205: Attending MD Review Statement Attending Statement Attending MD Statement: examined this patient, discuss w/resident/PA/FIRE HYDRANT MECHANIC, agreed w/resident/PA/FIRE HYDRANT MECHANIC, reviewed EMR data (avail) Attending Assessment/Plan: 72F PMH MD in 06/2017, prothrombin gene mutation maintained on Eliquis and DVT hx s/p cystocele repair with mesh on 02/01/18 with post-operative bleeding when Eliquis was restarted. Patient feels well today and has no complaints. She was spotting overnight, and had a bit more blood when she was straining while defecating. Her Hgb remains relatively stable. Her heparin has been stopped. 1. Post-operative bleeding 2. Prothrombin gene mutation 3. History of MD Plan - Continue on telemetry - Follow urology recommendations - CBC daily, more frequently if bleeding - Follow cardiology recommendations - Continue to hold ASA for now - Continue remaining home medications - Follow urology recommendations - CBC daily, more frequently if bleeding - Follow cardiology recommendations - Continue to hold ASA for now - Continue remaining home medications
[2018-02-05 08:35] LABS: ABSOLUTE BASOPHIL COUNT 0.1 /CUMM (0.0-0.2); ABSOLUTE EOSINOPHIL COUNT 0.3 /CUMM (0.0-0.7); ABSOLUTE LYMPH COUNT 1.9 /CUMM (1.2-3.4); BASOPHIL % 0.8 % (0.0-2.0); EOSINOPHIL % 3.3 % (0-5); GRANULOCYTE % 67.5 % (42.2-75.2); MEAN CORPUSCULAR HGB 28.4 PG (27.0-31.0); MEAN CORPUSCULAR HGB CONC 33.6 G/DL (33.0-37.0); MEAN CORPUSCULAR VOLUME 84.6 FL (81.0-99.0); MEAN PLATELET VOLUME 7.9 FL (7.4-10.4); PLATELET COUNT 330 /CUMM (130-400); RBC DISTRIBUTION WIDTH 14.8 % (11.5-14.5); RED BLOOD CELL CT 3.55 /CUMM (4.20-5.40); WHITE BLOOD CELL COUNT 10.3 /CUMM (4.8-10.8)
--- NOTE | 2018-02-05 13:13 | PN- Cardiology ---
Subjective Subjective: The patient reports that she is feeling well. No chest pain. No palpitations. No shortness of breath. No diaphoresis. No nausea or vomiting. No lightheadedness or dizziness. She noted mild bleeding with voiding last night. Objective Vital Signs and I&Os Vital Signs Date Time Temp Pulse Resp B/P B/P Pulse O2 O2 Flow FiO2 Mean Ox Delivery Rate 02/05 0943 90 120/76 02/05 0623 97.7 73 20 104/64 97 Room Air 02/04 2358 98.6 73 20 98/70 94 Room Air 02/04 2119 66 90/50 02/04 1344 98.2 76 18 92/56 95 Room Air Intake & Output 02/05 1600 02/05 0800 02/05 0000 02/04 1600 02/04 0802/04 0000 Intake Total 120 120 885 Output Total 950 Balance 120 120 -65 Intake, IV 10 Intake, Oral 120 120 875 Number 2 Bowel Movements Output, Urine 950 Patient 118 lb Weight Physical Exam: Gen: NAD HEENT: normal Lungs: clear to auscultation, normal resp. effort Heart: RRR, S1, S2, no murmurs Abdomen: Soft, nontender, no masses Extremities: No clubbing, cyanosis, or edema. Neuro: Alert and oriented x 3, cranial nerves intact Current Medications: Current Medications Sig/Alessio Start time Last Medication Dose Route Stop Time Status Admin Acetaminophen 0 .STK-MED ONE 02/04 2118 DC PO Acetaminophen 650 MG Q4P PRN 02/04 1500 AC 02/04 PO 2116 Amlodipine Besylate 10 MG DAILY 02/04 09 DC 02/04 PO 0833 Bisacodyl 5 MG DAILY 02/05 1015 AC 02/05 PO 1051 Bisacodyl 10 MG ONCE PRN 02/03 0215 DC 02/03 [place] 0251 Bisacodyl 5 MG DAILY 02/02 1737 DC 02/03 PO 0830 Carvedilol 12.5 MG BID 02/04 0900 AC 02/05 PO 0943 Heparin Sodium 25,000 UNIT Q24H 02/04 1345 DC (Porcine) IV Sodium Chloride 500 ML Hydromorphone HCl 2 MG Q8 PRN 02/02 1745 DC 02/04 PO 0605 Omeprazole 40 MG DAILY AC 02/02 1702 AC 02/05 PO 0507 Polyethylene Glycol 17 GM DAILY PRN 02/04 1334 AC PO Polyethylene Glycol 17 GM DAILY 02/02 1736 W[place] 02/03 PO 0831 Senna 187 MG AT BEDTIME 02/04 2100 AC 02/04 PO 211 Senna 187 MG AT BEDTIME 02/02 2100 W[place] 02/03 PO 2026 Simvastatin 40 MG DAILY@1700 02/03 1745 02/04 PO 1840 Results Last 48 Hrs of Labs/Mics: Laboratory Tests 02/05/18 0745: Anion Gap 8, Estimated GFR > 60, BUN/Creatinine Ratio 22.0, CBC w Diff NO MAN DIFF REQ, RBC 3.55 L, MCV 84.6, MCH 28.4, MCHC 33.6, RDW 14.8 H, MPV 7.9, Gran % 67.5, Lymphocytes % 18.8 L, Monocytes % 9.6 H, Eosinophils % 3.3, Basophils % 0.8, Absolute Granulocytes 7.0 H, Absolute Lymphocytes 1.9, Absolute Monocytes 1.0 H, Absolute Eosinophils 0.3, Absolute Basophils 0.1 02/04/18 0903: Anion Gap 8, Estimated GFR > 60, BUN/Creatinine Ratio 22.0, CBC w Diff NO MAN DIFF REQ, RBC 3.85 L, MCV 83.5, MCH 28.2, MCHC 33.8, RDW 14.7 H, MPV 7.9, Gran % 73.9, Lymphocytes % 16.8 L, Monocytes % 7.6, Eosinophils % 1.4, Basophils % 0.3, Absolute Granulocytes 8.8 H, Absolute Lymphocytes 2.0, Absolute Monocytes 0.9 H, Absolute Eosinophils 0.2, Absolute Basophils 0 02/04/18 0853: Urine Color YEL, Urine Clarity CLEAR, Urine pH 6.5, Ur Specific [place] 1.010, Urine Protein NEG, Urine Ketones NEG, Urine Nitrite NEG, Urine Bilirubin NEG, Urine Urobilinogen 0.2, Ur Leukocyte Esterase TRACE H, Ur Microscopic SEDIMENT EXAMINED, Urine RBC 25-50 H, Urine WBC 1-3 H, Ur Epithelial Cells FEW, Urine Bacteria FEW H, Urine Hemoglobin LARGE H, Urine Glucose NEG 02/03/18 1920: CBC w Diff NO MAN DIFF REQ, RBC 3.94 L, MCV 83.9, MCH 28.3, MCHC 33.7, RDW 14.9 H, MPV 7.9, Gran % 76.8 H, Lymphocytes % 13.6 L, Monocytes % 8.3, Eosinophils % 1.2, Basophils % 0.1, Absolute Granulocytes 10.9 H, Absolute Lymphocytes 1.9, Absolute Monocytes 1.2 H, Absolute Eosinophils 0.2, Absolute Basophils 0 02/03/18 1755: Troponin I 0.02 Assessment/Plan Assessment/Plan Assessment: 1. CAD, status post myocardial infarction in June 2. Status post cystocele repair 3. Vaginal bleeding noted on reintroduction of Eliquis 4. Hypertension Plan: * Once bleeding has resolved, restart anticoagulation with heparin drip, which will be transitioned to Eliquis prior to discharge * Restart low-dose aspirin once leading has resolved and cleared by surgery * Continue other cardiac medications Continue telemetry? Yes
[2018-02-05 14:41] VITALS: BP 102/64
--- NOTE | 2018-02-05 16:19 | Patient Discharge Instructions ---
Discharge Instructions General Discharge Information You were seen/treated for: Genitourinary bleeding status post cystocele repair and bladder mesh You had these procedures: Abdomen/Pelvis CT Watch for these problems: If you experience any worsening bleeding please follow up with your PCP. Special Instructions: Please follow up with your PCP/Urologist within one week. Please continue to take your home medications. Diet Continue normal diet: Yes Recommended Diet: Regular Activity Full Activity/No Limits: No Activity Self Limited: Yes Acute Coronary Syndrome Inclusion Criteria At DC or during hospital stay patient has or had the following: ACS DIAGNOSIS No Discharge Core Measures Meds if any: Prescribed or Continued at Discharge Meds if any: NOT Prescribed or Continued at Discharge Congestive Heart Failure Inclusion Criteria At DC or during hospital stay patient has or had the following: CHF DIAGNOSIS No Discharge Core Measures Meds if any: Prescribed or Continued at Discharge Meds if any: NOT Prescribed or Continued at Discharge Cerebrovascular accident Inclusion Criteria At DC or during hospital stay patient has or had the following: CVA/TIA Diagnosis No Discharge Core Measures Meds if any: Prescribed or Continued at Discharge Meds if any: NOT Prescribed or Continued at Discharge Venous thromboembolism Inclusion Criteria VTE Diagnosis No VTE Type NONE VTE Confirmed by (Test) NONE Discharge Core Measures - Per Current guidelines, there needs to be overlap - treatment for the first 5 days of Warfarin therapy. - If discharged on Warfarin prior to 5 days of - overlap therapy, the patient will need to be - assessed for post discharge needs including - *Post discharge parental anticoagulation - *Warfarin and/or parental anticoagulation education - *Follow up date to check INR post discharge At least 5 days overlap therapy as Inpatient No Meds if any: Prescribed or Continued at Discharge Note: Overlap Therapy is Warfarin and Anticoagulant Meds if any: NOT Prescribed or Continued at Discharge
--- NOTE | 2018-02-05 16:26 | Discharge Summary ---
Visit Information Visit Dates Admission Date: 02/02/18 Discharge Date: 02/09/18 Hospital Course Course Attending Physician: Lucian Galloway MD Primary Care Physician: Wisam Wang MD Hospital Course: 72-year-old female with past medical history of recent MD in 2018, diverticulitis, prothrombin gene mutation maintained on Abixaban. She is coming in post procedure cystocele repair with mesh with genitourinary bleeding. 1. Genitourinary bleeding status post cystocele repair and bladder mesh -Patient was initially admitted to the hospital with increasing abdominal pain and reported 2-3 pads changed because of ongoing bleeding. The CT scan done in the emergency department was positive for small hematoma. The patient is hemodynamically stable at this point. We followed her repeat H&H and followed up with Dr. Connelly. Recommended to hold Eliquis and Aspirin as patient's H/H was not in an adequate range. We restarted Heparin on 02/08 and transitioned to Eliquis on 02/09. We advised patient to stop taking Aspirin for the time being and to follow up with her Urologist and PCP as an outpatient for further management. Patient subsequently discharged to have close follow up with PCP and Dr. Connelly. Allergies: Coded Allergies: acetaminophen (From PERCOCET) (Intermediate, FLUSHING 02/03/18) oxycodone (From PERCOCET) (Intermediate, FLUSHING 02/03/18) atorvastatin (UNKNOWN 02/03/18) codeine (Intermediate, GI UPSET 02/02/18) Significant Procedures: Abd/Pelvis CT - Soft tissue 6 cm mass in between the bladder and rectum measuring approximately 70 Hounsfield units. Likely hematoma. There is a suspicion of active bleeding occurring on CT axial image 74, series 2. Also visualized is free air in lower right pelvis and air within the soft tissue mass which could be secondary to surgery or bowel perforation. Correlation with history for surgery should be performed as patient is status post bladder mesh placement yesterday. Scattered ascending and transverse diverticula and diffuse sigmoid diverticulosis. There is no bowel obstruction seen except for moderate constipation. There is air in the bladder likely from catheterization. Again correlate with history. Disposition Summary Disposition Principal Diagnosis: Genitourinary bleeding status post cystocele repair and bladder mesh Additional Diagnosis: Hx. Prothrombin Gene Mutation Hx. of GERD Discharge Disposition: home or self care Discharge Instructions General Discharge Information Code Status: Full Code Patient's Diet: regular Patient's Activity: ad angus Follow-Up Instructions/Appts: Please follow up with your PCP/Urologist within one week. Please continue to take your home medications. Medications at Discharge Discharge Medications: Stop taking the following medications: Aspirin (Aspirin*) 81 MG TAB.CHEW ORAL DAILY Continue taking these medications: Apixaban (Eliquis) 5 MG TABLET 1 Tablet ORAL TWICE DAILY Qty = 60 Simvastatin (Simvastatin*) 40 MG TABLET 1 Tablet ORAL Every night Sennosides (Senna) 8.6 MG TABLET 1 Tablet ORAL Every night Carvedilol (Carvedilol) 3.125 MG TABLET 1 Tablet ORAL TWICE DAILY Qty = 180 Omeprazole (Omeprazole) 40 MG CAPSULE.DR 1 Capsule ORAL DAILY Qty = 90 Tramadol HCl (Tramadol HCl) (Unknown Strength) TABLET Unknown Dose as needed for PAIN Copies To: Felipe GOODMAN,Wisam Stewart Attending MD Review Statement Documenting Attending: Laverne GOODMAN,Lucian
[2018-02-05 23:15] VITALS: BP 102/68
--- NOTE | 2018-02-05 23:43 | Event Note ---
Event Note Event Note: Situation: I was notified by the nurses that the patient has fresh rectal bleeding Background: the patient recently had surgery on her cystocele, and had urethral bleeding Assessment: Patient had gone to the bathroom to have a bowel movement, did not have a bowel movement but fresh blood dripping. Till morning she had 3 episodes of gross hematuria. I saw the urine, probably each time she passed 20-40 mL of blood mixed with urine based on a rough estimation regarding color and opacity of the urine. Recommendations: We will check H&H and will reassess the patient. Type and crossmatch the patient. INR was checked.
[2018-02-06] VITALS (7 sets, daily range): BP systolic 88–116; BP diastolic 58–72
[2018-02-06 00:08] LABS: ABSOLUTE BASOPHIL COUNT 0.1 /CUMM (0.0-0.2); ABSOLUTE EOSINOPHIL COUNT 0.4 /CUMM (0.0-0.7); ABSOLUTE GRANULOCYTE CT 7.2 /CUMM (1.4-6.5); BASOPHIL % 0.7 % (0.0-2.0); EOSINOPHIL % 3.7 % (0-5); GRANULOCYTE % 61.4 % (42.2-75.2); HEMATOCRIT 27.7 % (37-47); MEAN CORPUSCULAR HGB 28.3 PG (27.0-31.0); MEAN CORPUSCULAR HGB CONC 33.7 G/DL (33.0-37.0); MEAN CORPUSCULAR VOLUME 84.1 FL (81.0-99.0); MEAN PLATELET VOLUME 7.7 FL (7.4-10.4); PLATELET COUNT 335 /CUMM (130-400); RBC DISTRIBUTION WIDTH 14.7 % (11.5-14.5); RED BLOOD CELL CT 3.29 /CUMM (4.20-5.40); WHITE BLOOD CELL COUNT 11.8 /CUMM (4.8-10.8)
--- NOTE | 2018-02-06 07:45 | PN- Housestaff ---
Terry Vieyra 02/06/18 0744: Subjective Follow-up For: Bleeding s/p cystocele repair Hx. DVT/Prothrombin mutation Subjective: Afebrile overnight. Patient is seen and examined this morning. Pantera states she had a 2-3 episodes of gross vaginal bleeding when she had attempted to go the bathroom. Patient's recent H/H is 9.3/27.7 from last night. Patient denies any fatigue, lightheadedness, chest pain, dizziness, and shortness of breath. Patient states she has been having difficulty with going to the bathroom to have a bowel movement and sometimes feels some pressure in her genitourinary region. Patient otherwise has no other complaints today. Review of Systems Constitutional: Reports: see HPI. Objective Last 24 Hrs of Vital Signs/I&O Vital Signs Date Time Temp Pulse Resp B/P B/P Pulse O2 O2 Flow FiO2 Mean Ox Delivery Rate 02/06 0723 98.2 69 20 116/66 95 Room Air 02/05 2315 98.2 82 16 102/68 96 Room Air 02/05 2200 93 102/68 02/05 1441 98.3 83 20 102/64 98 02/05 0943 90 120/76 Intake & Output 02/06 0800 02/06 0000 02/05 1600 Intake Total 120 240 755 Output Total 900 Balance -780 240 755 Intake, IV 5 Intake, Oral 120 240 750 Output, Urine 900 Patient 113 lb Weight Physical Exam General Appearance: Alert, Oriented X3, Cooperative, No Acute Distress Skin: No Rashes, No Breakdown Skin Temp/Moisture Exam: Warm/Dry HEENT: Atraumatic Neck: Supple, No JVD Cardiovascular: Regular Rate, Normal S1, Normal S2 Lungs: Clear to Auscultation Abdomen: Soft, No Tenderness Neurological: Normal Speech Extremities: No Edema Assessment/Plan Assessment: CT ABD/PELVIS - 1. Large pelvic hematoma is seen posterior to the bladder with adjacent collection of Surgicel in the left lower pelvis. This hematoma is slightly larger compared to the prior exam. On the current study, which was not performed as a CTA, there is good opacification of the arterial vessels, and no definite active extravasation of contrast is seen to suggest active bleeding. 2. Postoperative changes seen in the pelvis related to recent cystocele repair with decrease in the amount of free air in the pelvis. Small amounts of air are seen in the bladder, consistent with instrumentation. 3. Prominent rectosigmoid diverticulosis with no evidence of acute diverticulitis. 72-year-old female with past medical history of recent ND in 2018, diverticulitis, prothrombin gene mutation maintained on Abixaban. She is coming in post procedure cystocele repair with mesh with genitourinary bleeding. Vitals on presentation stable except elevated blood pressure repeat readings 161 /83 Admitting labs are significant for leukocytosis of 11.7, hyponatremia 134, INR of 1.38 UA is positive for RBCs, nitrate positive and 10-15 WBCs Patient is being admitted to general medicine for further treatment and evaluation of postop complications #Genitourinary bleeding status post cystocele repair and bladder mesh -Patient is complaining of increasing abdominal pain and reports 2-3 PADS changed because of ongoing bleeding. The CT scan done in the ED was positive for small hematoma. The patient is hemodynamically stable at this point -We'll repeat H&H and f/u , call Dr. Connelly if there is a drop in H/H -Type and screen with with cardiac history transfusion goal will be Hb less than 8 -Holding eliquis for now -f/u with dr Connelly; holding Heparin currently -Patient had 3 episodes of gross hematuria, approximately 20-40 ml of blood mixed with urine, during the evening of 02/05; H/H dropped to 9.3/27.7 and patient had subsequent Type And Crossmatch; will follow up with Dr. Connelly regarding management of bleeding; discussed with Dr. Connelly and we will continue to monitor the bleeding with serial CBCs -Ordered follow up CT abd/pelvis to reevaluate source of bleeding; large pelvic hematoma is seen posterior to the bladder, slightly larger compared to prior study #Prothrombin gene mutation -Patient has history of hypercoagulable state with Prothrombin gene mutation -We held anticoagulation pending clinical status and H/H; Urology seeing patient and recommended to hold Heparin until H/H improves #History of recent ND -We hold aspirin setting of active bleeding -Continue carvedilol and statin -Continue Amlodipine #History of GERD -Continue PPI #Hypertension hyperlipidemia -Continue carvedilol and statin Heart healthy diet DVT prophylaxis Code Status: FC Problem List: 1. Postoperative vaginal bleeding following genitourinary procedure Pain Ratin Pain Location: na Pain Goal: Remain pain free Pain Plan: na Tomorrow's Labs & Rationales: routine Laverne GOODMANDianablair 02/06/18 1150: Attending MD Review Statement Attending Statement Attending MD Statement: examined this patient, discuss w/resident/PA/LOAN SUPERVISOR, agreed w/resident/PA/LOAN SUPERVISOR, reviewed EMR data (avail) Attending Assessment/Plan: 72F PMH ND in 06/2017, prothrombin gene mutation maintained on Eliquis and DVT hx s/p cystocele repair with mesh on 02/01/18 with post-operative bleeding when Eliquis was restarted. Patient feels well today and has no complaints. She bled again overnight off blood thinners, and Hct has dropped again. 1. Post-operative bleeding 2. Prothrombin gene mutation 3. History of ND Plan - Continue on telemetry - Follow urology recommendations - CBC daily, more frequently if bleeding - CT abdomen/pelvis - Follow cardiology recommendations - Continue to hold ASA for now - Continue remaining home medications
[2018-02-06 08:15] LABS: PT 12.2 SEC (9.4-12.5)
[2018-02-06 08:40] LABS: ABSOLUTE BASOPHIL COUNT 0.1 /CUMM (0.0-0.2); ABSOLUTE EOSINOPHIL COUNT 0.3 /CUMM (0.0-0.7); ABSOLUTE LYMPH COUNT 2.2 /CUMM (1.2-3.4); ABSOLUTE MONOCYTE COUNT 0.8 /CUMM (0.10-0.60); EOSINOPHIL % 3.4 % (0-5); GRANULOCYTE % 63.4 % (42.2-75.2); HEMATOCRIT 27.6 % (37-47); MEAN CORPUSCULAR HGB 28.4 PG (27.0-31.0); MEAN CORPUSCULAR HGB CONC 33.9 G/DL (33.0-37.0); MEAN CORPUSCULAR VOLUME 83.9 FL (81.0-99.0); MEAN PLATELET VOLUME 7.9 FL (7.4-10.4); PLATELET COUNT 360 /CUMM (130-400); RBC DISTRIBUTION WIDTH 14.7 % (11.5-14.5); RED BLOOD CELL CT 3.28 /CUMM (4.20-5.40); WHITE BLOOD CELL COUNT 9.4 /CUMM (4.8-10.8)
--- NOTE | 2018-02-06 10:50 | PN- Cardiology ---
Subjective Subjective: Patient seems to be stable from a cardiac perspective, however continues to have evidence of vaginal bleeding per the patient Objective Vital Signs and I&Os Vital Signs Date Time Temp Pulse Resp B/P B/P Pulse O2 O2 Flow FiO2 Mean Ox Delivery Rate 02/07 912 69 116/66 02/06 0723 98.2 69 20 116/66 95 Room Air 02/05 2315 98.2 82 16 102/68 96 Room Air 02/05 2200 93 102/68 02/05 1441 98.3 83 20 102/64 98 Intake & Output 02/06 1600 02/06 0800 02/06 0000 02/05 1600 02/05 0800 02/05 0000 Intake Total 120 240 755 120 120 Output Total 900 Balance -780 240 755 120 120 Intake, IV 5 Intake, Oral 120 240 750 120 120 Output, Urine 900 Patient 113 lb 118 lb Weight Physical Exam: Gen: NAD HEENT: normal Lungs: clear to auscultation, normal resp. effort Heart: RRR, S1, S2, no murmurs Abdomen: Soft, nontender, no masses Extremities: No clubbing, cyanosis, or edema. Neuro: Alert and oriented x 3, cranial nerves intact Current Medications: Current Medications Sig/Alessio Start time Last Medication Dose Route Stop Time Status Admin Acetaminophen 650 MG Q4P PRN 02/04 1500 AC 02/04 PO 2116 Bisacodyl 5 MG DAILY 02/05 1015 02/06 PO 0912 Carvedilol 12.5 MG BID 02/04 0900 02/06 PO 0912 Magnesium Hydroxide 30 ML ONE ONE 02/05 2345 DC 02/05 PO 02/05 2346 2354 Magnesium Hydroxide 0 .STK-MED ONE 02/05 2344 PA PO Omeprazole 40 MG DAILY AC 02/02 1702 02/06 PO 0659 Polyethylene Glycol 17 GM DAILY PRN 02/04 1334 AC 02/05 PO 1911 Senna 187 MG AT BEDTIME 02/04 2100 AC 02/05 PO 2158 Simvastatin 40 MG DAILY@1700 02/03 1745 02/05 PO 1757 Results Last 48 Hrs of Labs/Mics: Laboratory Tests 02/06/1817: PT 12.2, INR 1.12, CBC w Diff NO MAN DIFF REQ, RBC 3.28 L, MCV 83.9, MCH 28.4, MCHC 33.9, RDW 14.7 H, MPV 7.9, Gran % 63.4, Lymphocytes % 23.7, Monocytes % 8.5, Eosinophils % 3.4, Basophils % 1.0, Absolute Granulocytes 6.0, Absolute Lymphocytes 2.2, Absolute Monocytes 0.8 H, Absolute Eosinophils 0.3, Absolute Basophils 0.1 02/05/18 2350: CBC w Diff NO MAN DIFF REQ, RBC 3.29 L, MCV 84.1, MCH 28.3, MCHC 33.7, RDW 14.7 H, MPV 7.7, Gran % 61.4, Lymphocytes % 25.4, Monocytes % 8.8, Eosinophils % 3.7 , Basophils % 0.7, Absolute Granulocytes 7.2 H, Absolute Lymphocytes 3.0, Absolute Monocytes 1.0 H, Absolute Eosinophils 0.4, Absolute Basophils 0.1 02/05/18 0745: Anion Gap 8, Estimated GFR > 60, BUN/Creatinine Ratio 22.0, CBC w Diff NO MAN DIFF REQ, RBC 3.55 L, MCV 84.6, MCH 28.4, MCHC 33.6, RDW 14.8 H, MPV 7.9, Gran % 67.5, Lymphocytes % 18.8 L, Monocytes % 9.6 H, Eosinophils % 3.3, Basophils % 0.8, Absolute Granulocytes 7.0 H, Absolute Lymphocytes 1.9, Absolute Monocytes 1.0 H, Absolute Eosinophils 0.3, Absolute Basophils 0.1 Assessment/Plan Assessment/Plan Assessment: 1. CAD, status post myocardial infarction in June 2. Status post cystocele repair 3. Vaginal bleeding noted on reintroduction of Eliquis 4. Hypertension Plan: -continue to monitor off of anticoagulation -Maintain on trade specialist for now -Await further plans with respect to urologic interventions. Continue telemetry? Yes
--- NOTE | 2018-02-06 13:21 | CT SCAN REPORT ---
EXAMINATION: CT ABDOMEN AND PELVIS WITH CONTRAST CLINICAL INFORMATION: Gross hematuria 02/05/2018. 2-3 episodes. Lower abdominal/ pressure. Presumptive diagnosis of hematoma. Status post cystocele repair with mesh on 02/01/2018. COMPARISON: CT scan of the abdomen and pelvis dated 02/02/2018 and 02/25/2017. Ultrasound of the abdomen dated 09/29/2016. TECHNIQUE: Multidetector CT volumetric acquisition of the abdomen and pelvis was performed after the administration of 95 mL of intravenous Optiray 320. The data set was reformatted in the sagittal and coronal planes and reviewed on an independent workstation. DLP: 272.57 mGy-cm. FINDINGS: LOWER CHEST: Included lung bases unremarkable. LIVER, GALLBLADDER, BILIARY TREE: Liver normal size and attenuation. No focal cystic or solid mass or intra-or extrahepatic ductal dilatation. Hepatic and portal veins patent. Gallbladder partially distended and within normal limits. PANCREAS: Normal. No ductal dilatation, mass, or surrounding stranding. SPLEEN: Normal size and appearance. Splenic vein patent. ADRENAL GLANDS AND KIDNEYS: Adrenal glands normal. Kidneys bilaterally symmetric in size and function. No focal mass, hydronephrosis, nephrolithiasis or perinephric stranding. Extrarenal pelvis on the left side is again seen. URETERS: Ureters decompressed and within normal limits. BLADDER/PELVIC ORGANS: Bladder well distended with intraluminal free air noted, likely due to recent instrumentation. There is a 7.1 x 6.3 x 7.0 cm high density mass seen posterior to the bladder, causing mass effect upon the posterior bladder lumen, presumably representing a large pelvic hematoma. The previously seen focus of presumed active bleeding within this hematoma is no longer visualized on today's exam. There are some peripheral enhancing small vessels seen along the inferior margin of this mass, similar to prior exam. Compared to the prior exam, the hematoma is slightly larger, previously measuring 6.5 x 5.7 x 6.6 cm. There is a ovoid mixed attenuation mass seen in the left adnexa adjacent to the hematoma with internal air locules seen, consistent with the Surgicel placed during the time of the surgery. Trace amount of edema is seen in the surrounding tissue planes in the pelvis. The amount of free air is seen in the pelvis has decreased in the interim. The patient is status post hysterectomy. Ovaries are not seen and presumably are absent as well or atrophic. GASTROINTESTINAL TRACT: Extensive diverticulosis of the rectosigmoid colon is seen with no evidence of acute diverticulitis. The colon is otherwise unremarkable. Appendix is partially visualized and appears unremarkable. Small bowel loops are decompressed and unremarkable. LYMPHOVASCULAR STRUCTURES: Abdominal aorta normal in caliber. No periaortic collections. No abdominal or pelvic adenopathy or free fluid collection. BONES: Small vertebral hemangioma is seen in the L4 vertebral body. Mild degenerative spurring is seen in the mid and lower lumbar spine. IMPRESSION: 1. Large pelvic hematoma is seen posterior to the bladder with adjacent collection of Surgicel in the left lower pelvis. This hematoma is slightly larger compared to the prior exam. On the current study, which was not performed as a CTA, there is good opacification of the arterial vessels, and no definite active extravasation of contrast is seen to suggest active bleeding. 2. Postoperative changes seen in the pelvis related to recent cystocele repair with decrease in the amount of free air in the pelvis. Small amounts of air are seen in the bladder, consistent with instrumentation. 3. Prominent rectosigmoid diverticulosis with no evidence of acute diverticulitis. Findings discussed with Dr. Alana Connelly 02/06/2018, approximately 1:00 PM.
[2018-02-06 15:05] LABS: ABSOLUTE BASOPHIL COUNT 0.1 /CUMM (0.0-0.2); ABSOLUTE EOSINOPHIL COUNT 0.4 /CUMM (0.0-0.7); ABSOLUTE GRANULOCYTE CT 6.6 /CUMM (1.4-6.5); ABSOLUTE LYMPH COUNT 2.4 /CUMM (1.2-3.4); ABSOLUTE MONOCYTE COUNT 0.8 /CUMM (0.10-0.60); BASOPHIL % 0.9 % (0.0-2.0); EOSINOPHIL % 3.6 % (0-5); GRANULOCYTE % 63.9 % (42.2-75.2); HEMATOCRIT 28.3 % (37-47); MEAN CORPUSCULAR HGB CONC 33.2 G/DL (33.0-37.0); MEAN CORPUSCULAR VOLUME 84.2 FL (81.0-99.0); MEAN PLATELET VOLUME 7.7 FL (7.4-10.4); PLATELET COUNT 350 /CUMM (130-400); RBC DISTRIBUTION WIDTH 14.9 % (11.5-14.5); RED BLOOD CELL CT 3.36 /CUMM (4.20-5.40); WHITE BLOOD CELL COUNT 10.3 /CUMM (4.8-10.8)
--- NOTE | 2018-02-06 17:18 | PN- Urology ---
Subjective Subjective: Pt had bleeding overnight x3. No associated symptoms of CP, dizzines, SOB or pelvic pain. She did not eat anything and kept NPIO in case an IR intervention was required. Review of Systems Constitutional: Reports: no symptoms. EENTM: Reports: no symptoms. Cardiovascular: Reports: no symptoms. Respiratory: Reports: no symptoms. Gastrointestinal: Reports: constipation. Musculoskeletal: Reports: no symptoms. Skin: Reports: no symptoms. Neurological/Psychological: Reports: no symptoms. Hematologic/Endocrine: Reports: bleeding. Immunologic/Allergic: Reports: no symptoms. Objective Vital Signs and I&Os Vital Signs Date Time Temp Pulse Resp B/P B/P Pulse O2 O2 Flow FiO2 Mean Ox Delivery Rate 02/06 1453 98.5 67 18 98/62 96 Room Air 02/06 1321 62 20 112/62 97 Room Air Room Air 02/06 0912 69 116/66 02/06 0723 98.2 69 20 116/66 95 Room Air 02/05 2315 98.2 82 16 102/68 96 Room Air 02/05 2200 93 102/68 Intake & Output 02/06 1600 02/06 0800 02/06 0000 02/05 1600 02/05 0800 02/05 0000 Intake Total 120 120 240 755 120 120 Output Total 900 Balance 120 -780 240 755 120 120 Intake, IV 5 Intake, Oral 120 120 240 750 120 120 Output, Urine 900 Patient 51.029 kg 53.581 kg Weight Physical Exam General Appearance: well developed/nourished, no apparent distress, alert, awake , comfortable Head: atraumatic, normal appearance Ears, Nose, Throat: normal ENT inspection Abdomen: soft, non-tender Rectal: deferred Back: normal inspection Extremities: no edema Neurologic/Psychiatric: awake, alert, oriented x 3 Skin: intact, normal color, warm/dry Reproductive: Normal female genitalia (vag exam w small amt of blood) Pelvic: Appearance Normal Current Medications: Current Medications Sig/Alessio Start time Last Medication Dose Route Stop Time Status Admin Acetaminophen 650 MG Q4P PRN 02/04 1500 AC 02/04 PO 2116 Bisacodyl 5 MG DAILY 02/05 1015 AC 02/06 PO 0912 Carvedilol 12.5 MG BID 02/04 0900 AC 02/06 PO 0912 Magnesium Hydroxide 30 ML ONE ONE 02/05 2345 DC 02/05 PO 02/05 2346 2354 Magnesium Hydroxide 0 .STK-MED ONE 02/05 2344 DC PO Omeprazole 40 MG DAILY AC 02/02 1702 AC 02/06 PO 0659 Polyethylene Glycol 17 GM DAILY PRN 02/04 1334 AC 02/05 PO 1911 Senna 187 MG AT BEDTIME 02/04 2100 AC 02/05 PO 2158 Simvastatin 40 MG DAILY@1700 02/03 1745 AC 02/06 PO 1656 Results Last 48 Hours of Labs: Laboratory Tests 02/06 02/06 1435 0717 Coagulation PT (9.4 - 12.5 SEC) 12.2 INR (0.90 - 1.19) 1.12 Hematology CBC w Diff NO MAN DIFF REQ NO MAN DIFF REQ WBC (4.8 - 10.8 /CUMM) 10.3 9.4 RBC (4.20 - 5.40 /CUMM) 3.36 L 3.28 L Hgb (12.0 - 16.0 G/DL) 9.4 L 9.3 L Hct (37 - 47 %) 28.3 L 27.6 L MCV (81.0 - 99.0 FL) 84.2 83.9 MCH (27.0 - 31.0 PG) 28.0 28.4 MCHC (33.0 - 37.0 G/DL) 33.2 33.9 RDW (11.5 - 14.5 %) 14.9 H 14.7 H Plt Count (130 - 400 /CUMM) 350 360 MPV (7.4 - 10.4 FL) 7.7 7.9 Gran % (42.2 - 75.2 %) 63.9 63.4 Lymphocytes % (20.5 - 51.1 %) 23.4 23.7 Monocytes % (1.7 - 9.3 %) 8.2 8.5 Eosinophils % (0 - 5 %) 3.6 3.4 Basophils % (0.0 - 2.0 %) 0.9 1.0 Absolute Granulocytes (1.4 - 6.5 /CUMM) 6.6 H 6.0 Absolute Lymphocytes (1.2 - 3.4 /CUMM) 2.4 2.2 Absolute Monocytes (0.10 - 0.60 /CUMM) 0.8 H 0.8 H Absolute Eosinophils (0.0 - 0.7 /CUMM) 0.4 0.3 Absolute Basophils (0.0 - 0.2 /CUMM) 0.1 0.1 02/05 02/05 2350 0745 Chemistry Sodium (137 - 145 mmol/L) 134 L Potassium (3.5 - 5.1 mmol/L) 4.0 Chloride (98 - 107 mmol/L) 99 Carbon Dioxide (22 - 30 mmol/L) 26 Anion Gap (5 - 16) 8 BUN (7 - 17 mg/dL) 11 Creatinine (0.5 - 1.0 mg/dL) 0.5 Estimated GFR (>60 ml/min) > 60 BUN/Creatinine Ratio (7 - 25 %) 22.0 Hematology CBC w Diff NO MAN DIFF REQ NO MAN DIFF REQ WBC (4.8 - 10.8 /CUMM) 11.8 H 10.3 RBC (4.20 - 5.40 /CUMM) 3.29 L 3.55 L Hgb (12.0 - 16.0 G/DL) 9.3 L 10.1 L Hct (37 - 47 %) 27.7 L 30.0 L MCV (81.0 - 99.0 FL) 84.1 84.6 MCH (27.0 - 31.0 PG) 28.3 28.4 MCHC (33.0 - 37.0 G/DL) 33.7 33.6 RDW (11.5 - 14.5 %) 14.7 H 14.8 H Plt Count (130 - 400 /CUMM) 335 330 MPV (7.4 - 10.4 FL) 7.7 7.9 Gran % (42.2 - 75.2 %) 61.4 67.5 Lymphocytes % (20.5 - 51.1 %) 25.4 18.8 L Monocytes % (1.7 - 9.3 %) 8.8 9.6 H Eosinophils % (0 - 5 %) 3.7 3.3 Basophils % (0.0 - 2.0 %) 0.7 0.8 Absolute Granulocytes (1.4 - 6.5 /CUMM) 7.2 H 7.0 H Absolute Lymphocytes (1.2 - 3.4 /CUMM) 3.0 1.9 Absolute Monocytes (0.10 - 0.60 /CUMM) 1.0 H 1.0 H Absolute Eosinophils (0.0 - 0.7 /CUMM) 0.4 0.3 Absolute Basophils (0.0 - 0.2 /CUMM) 0.1 0.1 Recent Imaging Studies: CT ABD/PELVIS 02/06/18 IMPRESSION: 1. Large pelvic hematoma is seen posterior to the bladder with adjacent collection of Surgicel in the left lower pelvis. This hematoma is slightly larger compared to the prior exam. On the current study, which was not performed as a CTA, there is good opacification of the arterial vessels, and no definite active extravasation of contrast is seen to suggest active bleeding. 2. Postoperative changes seen in the pelvis related to recent cystocele repair with decrease in the amount of free air in the pelvis. Small amounts of air are seen in the bladder, consistent with instrumentation. 3. Prominent rectosigmoid diverticulosis with no evidence of acute diverticulitis. Findings discussed with Dr. Alana Connelly 02/06/2018, approximately 1:00 PM. Assessment/Plan Assessment/Plan 72yo female with a hx of CT in Fe and DVT hx on anticoag preop s/p uneventful cystocele repair with mesh with minimal bleeding intraop developed postop bleeding. Her HCT has steadily dropped over the last 5 days with no ative arterial bleeding but likely venous. Last night's recurrent bleeding likely stirred up with straining with a BM. She is spotting but her HCT is stable for the last three draws at 27-28. She has no cardiac complaints but her BP has been low. recommend holding carvedilol dose in pm. If HCT continues to trend down and BP cont to be low, would recommend transfusing PRBC regardless of HGB above 8. Recommend SCDs on leg without DVT and ambulation and leg exercises while in bed. Following closely with med team. Core Measures Venous Thromboembolism VTE Risk Factors Age>40 No Mechanical VTE Prophylaxis d/t N/A MechProphylax Ordered No VTE Pharm Prophylaxis d/t Other (active bleeding) Comment: postop bleeding
[2018-02-06 23:02] LABS: ABSOLUTE BASOPHIL COUNT 0.1 /CUMM (0.0-0.2); ABSOLUTE EOSINOPHIL COUNT 0.5 /CUMM (0.0-0.7); ABSOLUTE GRANULOCYTE CT 6.5 /CUMM (1.4-6.5); ABSOLUTE LYMPH COUNT 3.1 /CUMM (1.2-3.4); ABSOLUTE MONOCYTE COUNT 0.9 /CUMM (0.10-0.60); BASOPHIL % 0.6 % (0.0-2.0); EOSINOPHIL % 4.1 % (0-5); GRANULOCYTE % 58.9 % (42.2-75.2); HEMATOCRIT 27.4 % (37-47); MEAN CORPUSCULAR HGB 27.8 PG (27.0-31.0); MEAN CORPUSCULAR VOLUME 84.2 FL (81.0-99.0); MEAN PLATELET VOLUME 7.6 FL (7.4-10.4); PLATELET COUNT 347 /CUMM (130-400); RBC DISTRIBUTION WIDTH 15.4 % (11.5-14.5); RED BLOOD CELL CT 3.25 /CUMM (4.20-5.40)
[2018-02-07] VITALS (11 sets, daily range): BP systolic 110–138; BP diastolic 60–82
--- NOTE | 2018-02-07 07:58 | PN- Housestaff ---
Terry Vieyra 02/07/18 0758: Subjective Follow-up For: Bleeding s/p cystocele repair Hx. DVT/Prothrombin mutation Subjective: Afebrile overnight. Patient is seen and examined this morning. Patient states she felt a little lightheaded overnight but had some water to drink which made her feel more comfortable. Patient still reports some vaginal bleeding, slightly greater than spotting. Patient however denies any chest pain, palpitations, shortness of breath, n/v, and dizziness. Review of Systems Constitutional: Reports: see HPI. Objective Last 24 Hrs of Vital Signs/I&O Vital Signs Date Time Temp Pulse Resp B/P B/P Pulse O2 O2 Flow FiO2 Mean Ox Delivery Rate 02/07 1000 128/74 02/07 0800 120/72 02/07 0800 72 118/60 02/07 0631 98.4 66 20 120/80 99 Room Air 02/07 0430 98.2 63 20 110/60 95 Room Air 02/07 0232 98.5 70 20 110/66 96 Room Air 02/07 0020 98.6 64 20 110/66 95 Room Air 02/06 2247 97.5 62 20 88/58 96 Room Air 02/06 2100 98.4 73 20 88/60 94 Room Air 02/06 2041 73 88/60 02/06 1841 98.3 79 20 100/66 97 Room Air Room Air 02/06 1723 98.1 74 20 100/72 94 Room Air 02/06 1453 98.5 67 18 98/62 96 Room Air 02/06 1321 62 20 112/62 97 Room Air Room Air Intake & Output 02/07 1600 02/07 0800 02/07 0000 Intake Total 800 220 Output Total Balance 800 220 Intake, Oral 800 220 Physical Exam General Appearance: Alert, Oriented X3, Cooperative, No Acute Distress Skin: No Rashes, No Breakdown Skin Temp/Moisture Exam: Warm/Dry HEENT: Atraumatic Neck: Supple, No JVD Cardiovascular: Regular Rate, Normal S1, Normal S2 Lungs: Clear to Auscultation Abdomen: Soft, No Tenderness Neurological: Normal Speech Extremities: No Edema Assessment/Plan Assessment: CT ABD/PELVIS - 1. Large pelvic hematoma is seen posterior to the bladder with adjacent collection of Surgicel in the left lower pelvis. This hematoma is slightly larger compared to the prior exam. On the current study, which was not performed as a CTA, there is good opacification of the arterial vessels, and no definite active extravasation of contrast is seen to suggest active bleeding. 2. Postoperative changes seen in the pelvis related to recent cystocele repair with decrease in the amount of free air in the pelvis. Small amounts of air are seen in the bladder, consistent with instrumentation. 3. Prominent rectosigmoid diverticulosis with no evidence of acute diverticulitis. 72-year-old female with past medical history of recent MT in 2018, diverticulitis, prothrombin gene mutation maintained on Abixaban. She is coming in post procedure cystocele repair with mesh with genitourinary bleeding. Vitals on presentation stable except elevated blood pressure repeat readings 161 /83 Admitting labs are significant for leukocytosis of 11.7, hyponatremia 134, INR of 1.38 UA is positive for RBCs, nitrate positive and 10-15 WBCs Patient is being admitted to general medicine for further treatment and evaluation of postop complications #Genitourinary bleeding status post cystocele repair and bladder mesh -Patient is complaining of increasing abdominal pain and reports 2-3 PADS changed because of ongoing bleeding. The CT scan done in the ED was positive for small hematoma. The patient is hemodynamically stable at this point -We'll repeat H&H and f/u , call Dr. Connelly if there is a drop in H/H -Type and screen with with cardiac history transfusion goal will be Hb less than 8 -Holding eliquis for now -f/u with dr Connelly; holding Heparin currently -Patient had 3 episodes of gross hematuria, approximately 20-40 ml of blood mixed with urine, during the evening of 02/05; H/H dropped to 9.3/27.7 and patient had subsequent Type And Crossmatch; will follow up with Dr. Connelly regarding management of bleeding; discussed with Dr. Connelly and we will continue to monitor the bleeding with serial CBCs -Ordered follow up CT abd/pelvis to reevaluate source of bleeding; large pelvic hematoma is seen posterior to the bladder, slightly larger compared to prior study #Prothrombin gene mutation -Patient has history of hypercoagulable state with Prothrombin gene mutation -We held anticoagulation pending clinical status and H/H; Urology seeing patient and recommended to hold Heparin until H/H improves #History of recent MT -We hold aspirin setting of active bleeding -Continue carvedilol and statin -Continue Amlodipine #History of GERD -Continue PPI #Hypertension hyperlipidemia -Continue carvedilol and statin -Carvedilol dc'd due to low blood pressure readings with low H/H Heart healthy diet DVT prophylaxis Code Status: FC Problem List: 1. Postoperative vaginal bleeding following genitourinary procedure Pain Ratin Pain Location: na Pain Goal: Remain pain free Pain Plan: na Tomorrow's Labs & Rationales: routine Lucian Galloway MD 02/07/18 1447: Attending MD Review Statement Attending Statement Attending MD Statement: examined this patient, discuss w/resident/PA/RECRUITMENT INTERN, agreed w/resident/PA/RECRUITMENT INTERN, reviewed EMR data (avail) Attending Assessment/Plan: 72F PMH MT in 06/2017, prothrombin gene mutation maintained on Eliquis and DVT hx s/p cystocele repair with mesh on 02/01/18 with post-operative bleeding when Eliquis was restarted. Patient feels well today and has no complaints. She bled again overnight off blood thinners. 1. Post-operative bleeding 2. Prothrombin gene mutation 3. History of MT Plan - Continue on telemetry - Follow urology recommendations - CBC daily, more frequently if bleeding - CT abdomen/pelvis - Follow cardiology recommendations - Continue to hold ASA for now - Continue remaining home medications
[2018-02-07 08:27] LABS: ABSOLUTE BASOPHIL COUNT 0.1 /CUMM (0.0-0.2); ABSOLUTE EOSINOPHIL COUNT 0.4 /CUMM (0.0-0.7); ABSOLUTE LYMPH COUNT 1.7 /CUMM (1.2-3.4); ABSOLUTE MONOCYTE COUNT 0.7 /CUMM (0.10-0.60); BASOPHIL % 0.9 % (0.0-2.0); EOSINOPHIL % 4.4 % (0-5); GRANULOCYTE % 70.8 % (42.2-75.2); HEMATOCRIT 29.2 % (37-47); MEAN CORPUSCULAR HGB 28.4 PG (27.0-31.0); MEAN CORPUSCULAR HGB CONC 33.7 G/DL (33.0-37.0); MEAN CORPUSCULAR VOLUME 84.3 FL (81.0-99.0); MEAN PLATELET VOLUME 8.1 FL (7.4-10.4); PLATELET COUNT 362 /CUMM (130-400); RBC DISTRIBUTION WIDTH 14.9 % (11.5-14.5); RED BLOOD CELL CT 3.46 /CUMM (4.20-5.40); WHITE BLOOD CELL COUNT 9.9 /CUMM (4.8-10.8)
--- NOTE | 2018-02-07 09:32 | Event Note ---
Event Note Event Note: Dr. Connelly spoke to me over the phone and suggested to start the patient on IV fluids given her one episode of low blood pressure of systolic 88. She also requested to hold antihypertensive medication including carvedilol. For now she wants to monitor her vitals and CVC.
--- NOTE | 2018-02-07 13:48 | PN- Cardiology ---
Subjective Subjective: Clinically stable from cardiac standpoint. Continues to have some bleeding. The patient is very concerned about being off of anticoagulation, persistent bleeding, etc. Objective Vital Signs and I&Os Vital Signs Date Time Temp Pulse Resp B/P B/P Pulse O2 O2 Flow FiO2 Mean Ox Delivery Rate 02/07 1000 128/74 02/07 0800 120/72 02/07 0800 72 118/60 02/07 0631 98.4 66 20 120/80 99 Room Air 02/07 0430 98.2 63 20 110/60 95 Room Air 02/07 0232 98.5 70 20 110/66 96 Room Air 02/07 0020 98.6 64 20 110/66 95 Room Air 02/06 2247 97.5 62 20 88/58 96 Room Air 02/06 2100 98.4 73 20 88/60 94 Room Air 02/06 2041 73 88/60 02/06 1841 98.3 79 20 100/66 97 Room Air Room Air 02/06 1723 98.1 74 20 100/72 94 Room Air 02/06 1453 98.5 67 18 98/62 96 Room Air Intake & Output 02/07 1600 02/07 0800 02/07 0000 02/06 1600 02/06 0800 02/06 0000 Intake Total 800 220 120 120 240 Output Total 900 Balance 800 220 120 -780 240 Intake, Oral 800 220 120 120 240 Output, Urine 900 Patient 113 lb Weight Physical Exam: Gen: NAD HEENT: normal Lungs: clear to auscultation, normal resp. effort Heart: RRR, S1, S2, no murmurs Abdomen: Soft, nontender, no masses Extremities: No clubbing, cyanosis, or edema. Neuro: Alert and oriented x 3, cranial nerves intact Current Medications: Current Medications Sig/Alessio Start time Last Medication Dose Route Stop Time Status Admin Acetaminophen 650 MG Q4P PRN 02/04 1500 AC 02/04 PO 2116 Bisacodyl 5 MG DAILY 02/05 1015 AC 02/07 PO 0759 Carvedilol 12.5 MG BID 02/04 0900 DC 02/07 PO 0800 Omeprazole 40 MG DAILY AC 02/02 1702 AC 02/07 PO 0610 Polyethylene Glycol 17 GM DAILY PRN 02/04 1334 AC 02/05 PO 191 Senna 187 MG AT BEDTIME 02/04 2100 AC 02/06 PO 2041 Simvastatin 40 MG DAILY@1700 02/03 1745 AC 02/06 PO 1656 Sodium Chloride 1,000 ML ONCE ONE 02/07 0845 AC IV 02/07 2204 Results Last 48 Hrs of Labs/Mics: Laboratory Tests 02/07/18 0648: Anion Gap 7, Estimated GFR > 60, BUN/Creatinine Ratio 30.0 H, CBC w Diff NO MAN DIFF REQ, RBC 3.46 L, MCV 84.3, MCH 28.4, MCHC 33.7, RDW 14.9 H, MPV 8.1, Gran % 70.8, Lymphocytes % 17.1 L, Monocytes % 6.8, Eosinophils % 4.4, Basophils % 0.9, Absolute Granulocytes 7.0 H, Absolute Lymphocytes 1.7, Absolute Monocytes 0.7 H, Absolute Eosinophils 0.4, Absolute Basophils 0.1 02/06/18 2235: CBC w Diff NO MAN DIFF REQ, RBC 3.25 L, MCV 84.2, MCH 27.8, MCHC 33.0, RDW 15.4 H, MPV 7.6, Gran % 58.9, Lymphocytes % 28.4, Monocytes % 8.0, Eosinophils % 4.1 , Basophils % 0.6, Absolute Granulocytes 6.5, Absolute Lymphocytes 3.1, Absolute Monocytes 0.9 H, Absolute Eosinophils 0.5, Absolute Basophils 0.1 02/06/18 1435: CBC w Diff NO MAN DIFF REQ, RBC 3.36 L, MCV 84.2, MCH 28.0, MCHC 33.2, RDW 14.9 H, MPV 7.7, Gran % 63.9, Lymphocytes % 23.4, Monocytes % 8.2, Eosinophils % 3.6 , Basophils % 0.9, Absolute Granulocytes 6.6 H, Absolute Lymphocytes 2.4, Absolute Monocytes 0.8 H, Absolute Eosinophils 0.4, Absolute Basophils 0.1 02/06/18 0717: PT 12.2, INR 1.12, CBC w Diff NO MAN DIFF REQ, RBC 3.28 L, MCV 83.9, MCH 28.4, MCHC 33.9, RDW 14.7 H, MPV 7.9, Gran % 63.4, Lymphocytes % 23.7, Monocytes % 8.5, Eosinophils % 3.4, Basophils % 1.0, Absolute Granulocytes 6.0, Absolute Lymphocytes 2.2, Absolute Monocytes 0.8 H, Absolute Eosinophils 0.3, Absolute Basophils 0.1 02/05/18 2350: CBC w Diff NO MAN DIFF REQ, RBC 3.29 L, MCV 84.1, MCH 28.3, MCHC 33.7, RDW 14.7 H, MPV 7.7, Gran % 61.4, Lymphocytes % 25.4, Monocytes % 8.8, Eosinophils % 3.7 , Basophils % 0.7, Absolute Granulocytes 7.2 H, Absolute Lymphocytes 3.0, Absolute Monocytes 1.0 H, Absolute Eosinophils 0.4, Absolute Basophils 0.1 Assessment/Plan Assessment/Plan Assessment: 1. CAD, status post myocardial infarction in June 2. Status post cystocele repair 3. Vaginal bleeding noted on reintroduction of Eliquis 4. Hypertension Plan: -continue to monitor off of anticoagulation for now -Maintain on it service manager for now -Await further input and plans from urology -Out of bed, ambulate as much as possible while off of anticoagulation Continue telemetry? Yes
--- NOTE | 2018-02-07 15:49 | PN- Urology ---
Subjective Subjective: spoke to pt this morning. Episodes of low BP in the 80's and told to drink water. No IVF started. Little more than spotting on her pads. No CP/SOB/dizziness/or abd pain. She has been tolerating a diet. Good BM yest but none today. Anxious to go home but not if unsafe. Review of Systems Constitutional: Reports: no symptoms. EENTM: Reports: no symptoms. Cardiovascular: Reports: no symptoms. Respiratory: Reports: no symptoms. Gastrointestinal: Reports: no symptoms. Skin: Reports: no symptoms. Neurological/Psychological: Reports: no symptoms. Hematologic/Endocrine: Reports: bleeding. Immunologic/Allergic: Reports: no symptoms. Objective Vital Signs and I&Os Vital Signs Date Time Temp Pulse Resp B/P B/P Pulse O2 O2 Flow FiO2 Mean Ox Delivery Rate 02/07 1505 98.6 80 18 130/80 97 Room Air 02/07 1000 128/74 02/07 0800 120/72 02/07 0800 72 118/60 02/07 0631 98.4 66 20 120/80 99 Room Air 02/07 0430 98.2 63 20 110/60 95 Room Air 02/07 0232 98.5 70 20 110/66 96 Room Air 02/07 0020 98.6 64 20 110/66 95 Room Air 02/06 2247 97.5 62 20 88/58 96 Room Air 02/06 2100 98.4 73 20 88/60 94 Room Air 02/06 2041 73 88/60 02/06 1841 98.3 79 20 100/66 97 Room Air Room Air 02/06 1723 98.1 74 20 100/72 94 Room Air Intake & Output 02/07 1600 02/07 0800 02/07 0000 02/06 1600 02/06 0800 02/06 0000 Intake Total 620 800 220 120 120 240 Output Total 400 900 Balance 220 800 220 120 -780 240 Intake, Oral 620 800 220 120 120 240 Number 1 Bowel Movements Output, Urine 400 900 Patient 51.029 kg Weight Physical Exam: not examined Assessment/Plan Assessment/Plan 72yo female with a hx of DVT/KS in Jun s/p cystocele repair with mesh with postop bleeding with Eliquis restarted too soon. She has had trending down of her HCT over the postop course with initial presentation of rectal pain and elevated BP with elevated HR with CT imaging revealing a pelvic hematoma. The hematoma has slightly increased in size yest since initial imaging but HCT has remained relatively stable though her vaginal bleeding recurred after straining with a BM. The anticoagulation has been help as a result. Discussed case with IR and no intervention was warranted given no arterial bleeding vs venous bleeding. She will ambulate and drink plenty of fluids. Bolus with IVF as needed if BP drops below 100. PRBC transfusion will be deferred to cardiology. Appreciate med and cardiac input. Core Measures Venous Thromboembolism VTE Risk Factors Age>40 No Mechanical VTE Prophylaxis d/t N/A MechProphylax Ordered No VTE Pharm Prophylaxis d/t Other (active bleeding) Comment: postop bleeding
[2018-02-07 19:07] LABS: ABSOLUTE BASOPHIL COUNT 0.1 /CUMM (0.0-0.2); ABSOLUTE EOSINOPHIL COUNT 0.5 /CUMM (0.0-0.7); ABSOLUTE GRANULOCYTE CT 7.2 /CUMM (1.4-6.5); ABSOLUTE LYMPH COUNT 2.9 /CUMM (1.2-3.4); ABSOLUTE MONOCYTE COUNT 0.8 /CUMM (0.10-0.60); EOSINOPHIL % 4.2 % (0-5); MEAN CORPUSCULAR HGB 28.4 PG (27.0-31.0); MEAN CORPUSCULAR HGB CONC 33.5 G/DL (33.0-37.0); MEAN CORPUSCULAR VOLUME 84.9 FL (81.0-99.0); MEAN PLATELET VOLUME 8.6 FL (7.4-10.4); PLATELET COUNT 448 /CUMM (130-400); RBC DISTRIBUTION WIDTH 15.3 % (11.5-14.5); RED BLOOD CELL CT 3.65 /CUMM (4.20-5.40); WHITE BLOOD CELL COUNT 11.4 /CUMM (4.8-10.8)
[2018-02-08] VITALS (9 sets, daily range): BP systolic 106–130; BP diastolic 32–72
--- NOTE | 2018-02-08 07:37 | PN- Housestaff ---
Terry Vieyra 02/08/18 0737: Subjective Follow-up For: Bleeding s/p cystocele repair Hx. DVT/Prothrombin mutation Subjective: Afebrile overnight. Patient is seen and examined this morning. Patient states she is feeling better today and notes her bleeding has been decreased. Patient notes she still has some pinkish blood when she urinates but otherwise no clots she noticed. Patient states she has not felt any lightheadedness, dizziness, chest pain, palpitations, shortness of breath, fevers, chills, and fatigue. Patient otherwise denies any new complaints and is feeling ready to go home today. Review of Systems Constitutional: Reports: see HPI. Objective Last 24 Hrs of Vital Signs/I&O Vital Signs Date Time Temp Pulse Resp B/P B/P Pulse O2 O2 Flow FiO2 Mean Ox Delivery Rate 02/08 0655 98.1 78 18 118/72 95 Room Air 02/08 0127 117/60 02/08 0000 117/60 02/07 2257 98.3 62 18 120/70 95 02/07 2104 98.2 71 19 130/76 96 02/07 1915 98.2 74 19 138/82 96 02/07 1720 98.6 64 18 138/80 96 02/07 1505 98.6 80 18 130/80 97 Room Air 02/07 1000 128/74 02/07 0800 120/72 02/07 0800 72 118/60 Intake & Output 02/08 0800 02/08 0000 02/07 1600 Intake Total 120 620 Output Total 400 Balance 120 220 Intake, Oral 120 620 Number 1 Bowel Movements Output, Urine 400 Patient 112 lb Weight Physical Exam General Appearance: Alert, Oriented X3, Cooperative, No Acute Distress Skin: No Rashes, No Breakdown Skin Temp/Moisture Exam: Warm/Dry HEENT: Atraumatic Neck: Supple, No JVD Cardiovascular: Regular Rate, Normal S1, Normal S2 Lungs: Clear to Auscultation Abdomen: Soft, No Tenderness Neurological: Normal Speech Extremities: No Edema Assessment/Plan Assessment: CT ABD/PELVIS - 1. Large pelvic hematoma is seen posterior to the bladder with adjacent collection of Surgicel in the left lower pelvis. This hematoma is slightly larger compared to the prior exam. On the current study, which was not performed as a CTA, there is good opacification of the arterial vessels, and no definite active extravasation of contrast is seen to suggest active bleeding. 2. Postoperative changes seen in the pelvis related to recent cystocele repair with decrease in the amount of free air in the pelvis. Small amounts of air are seen in the bladder, consistent with instrumentation. 3. Prominent rectosigmoid diverticulosis with no evidence of acute diverticulitis. 72-year-old female with past medical history of recent MT in 2018, diverticulitis, prothrombin gene mutation maintained on Abixaban. She is coming in post procedure cystocele repair with mesh with genitourinary bleeding. Vitals on presentation stable except elevated blood pressure repeat readings 161 /83 Admitting labs are significant for leukocytosis of 11.7, hyponatremia 134, INR of 1.38 UA is positive for RBCs, nitrate positive and 10-15 WBCs Patient is being admitted to general medicine for further treatment and evaluation of postop complications #Genitourinary bleeding status post cystocele repair and bladder mesh -Patient is complaining of increasing abdominal pain and reports 2-3 PADS changed because of ongoing bleeding. The CT scan done in the ED was positive for small hematoma. The patient is hemodynamically stable at this point -We'll repeat H&H and f/u , call Dr. Connelly if there is a drop in H/H -Type and screen with with cardiac history transfusion goal will be Hb less than 8 -Holding eliquis for now -f/u with dr Connelly; holding Heparin currently; spoke with Dr. Connelly who stated Heparin can be restarted (02/08/18) -Patient had 3 episodes of gross hematuria, approximately 20-40 ml of blood mixed with urine, during the evening of 02/05; H/H dropped to 9.3/27.7 and patient had subsequent Type And Crossmatch; will follow up with Dr. Connelly regarding management of bleeding; discussed with Dr. Connelly and we will continue to monitor the bleeding with serial CBCs -Ordered follow up CT abd/pelvis to reevaluate source of bleeding; large pelvic hematoma is seen posterior to the bladder, slightly larger compared to prior study #Prothrombin gene mutation -Patient has history of hypercoagulable state with Prothrombin gene mutation -We held anticoagulation pending clinical status and H/H; Urology seeing patient and recommended to hold Heparin until H/H improves -Started Heparin per DVT/PE protocol on the authority of Dr. Connelly on 02/08/18; will transition to Eliquis upon discharge #History of recent MT -We hold aspirin setting of active bleeding -Continue carvedilol and statin -Continue Amlodipine #History of GERD -Continue PPI #Hypertension hyperlipidemia -Continue carvedilol and statin -Carvedilol dc'd due to low blood pressure readings with low H/H; restarted Carvedilol Heart healthy diet DVT prophylaxis Code Status: Problem List: 1. Postoperative vaginal bleeding following genitourinary procedure Pain Ratin Pain Location: na Pain Goal: Remain pain free Pain Plan: prn meds Tomorrow's Labs & Rationales: routine Lucian Galloway MD 02/08/18 1249: Attending MD Review Statement Attending Statement Attending MD Statement: examined this patient, discuss w/resident/PA/LAST WAXER, agreed w/resident/PA/LAST WAXER, reviewed EMR data (avail) Attending Assessment/Plan: 72F PMH MT in 06/2017, prothrombin gene mutation maintained on Eliquis and DVT hx s/p cystocele repair with mesh on 02/01/18 with post-operative bleeding when Eliquis was restarted. Looks and feels much better today. Only minimal spotting overnight. Hct dropped slightly, still relatively stable. 1. Post-operative bleeding 2. Prothrombin gene mutation 3. History of MT Plan - Continue on telemetry - Follow urology recommendations - CBC daily, more frequently if bleeding - Per urology, will start heparin drip today and monitor - Follow cardiology recommendations - Continue to hold ASA for now - Continue remaining home medications
[2018-02-08 07:59] LABS: ABSOLUTE BASOPHIL COUNT 0.1 /CUMM (0.0-0.2); ABSOLUTE EOSINOPHIL COUNT 0.4 /CUMM (0.0-0.7); ABSOLUTE GRANULOCYTE CT 6.7 /CUMM (1.4-6.5); ABSOLUTE LYMPH COUNT 2.4 /CUMM (1.2-3.4); ABSOLUTE MONOCYTE COUNT 0.8 /CUMM (0.10-0.60); BASOPHIL % 0.7 % (0.0-2.0); EOSINOPHIL % 4.1 % (0-5); GRANULOCYTE % 64.4 % (42.2-75.2); HEMATOCRIT 29.2 % (37-47); MEAN CORPUSCULAR HGB 28.5 PG (27.0-31.0); MEAN CORPUSCULAR HGB CONC 33.7 G/DL (33.0-37.0); MEAN CORPUSCULAR VOLUME 84.8 FL (81.0-99.0); PLATELET COUNT 426 /CUMM (130-400); RBC DISTRIBUTION WIDTH 15.5 % (11.5-14.5); RED BLOOD CELL CT 3.44 /CUMM (4.20-5.40); WHITE BLOOD CELL COUNT 10.4 /CUMM (4.8-10.8)
--- NOTE | 2018-02-08 10:56 | PN- Cardiology ---
Subjective Subjective: Stable cardiac status with no new arrhythmias. Still with some bleeding per the patient. Objective Vital Signs and I&Os Vital Signs Date Time Temp Pulse Resp B/P B/P Pulse O2 O2 Flow FiO2 Mean Ox Delivery Rate 02/08 1032 70 130/710 02/08 0655 98.1 78 18 118/72 95 Room Air 02/08 0127 117/60 02/08 0000 117/60 02/07 2257 98.3 62 18 120/70 95 02/07 2104 98.2 71 19 130/76 96 02/07 1915 98.2 74 19 138/82 96 02/07 1720 98.6 64 18 138/80 96 02/07 1505 98.6 80 18 130/80 97 Room Air Intake & Output 02/08 1600 02/08 0800 02/08 0000 02/07 1600 02/07 0800 02/07 0000 Intake Total 120 620 800 220 Output Total 400 Balance 120 220 800 220 Intake, Oral 120 620 800 220 Number 1 Bowel Movements Output, Urine 400 Patient 112 lb Weight Physical Exam: Gen: NAD HEENT: normal Lungs: clear to auscultation, normal resp. effort Heart: RRR, S1, S2, no murmurs Abdomen: Soft, nontender, no masses Extremities: No clubbing, cyanosis, or edema. Neuro: Alert and oriented x 3, cranial nerves intact Current Medications: Current Medications Sig/Alessio Start time Last Medication Dose Route Stop Time Status Admin Acetaminophen 650 MG Q4P PRN 02/04 1500 AC 02/04 PO 2116 Bisacodyl 5 MG DAILY 02/05 1015 AC 02/08 PO 0819 Carvedilol 12.5 MG BID 02/08 0900 AC 02/08 PO 1032 Heparin Sodium 25,000 UNIT Q24H 02/08 0845 DC (Porcine) IV Sodium Chloride 500 ML Omeprazole 40 MG DAILY AC 02/02 1702 AC 02/08 PO 0644 Polyethylene Glycol 17 GM DAILY PRN 02/04 1334 AC 02/05 PO 1911 Senna 187 MG AT BEDTIME 02/04 2100 AC 02/07 PO 1929 Simvastatin 40 MG DAILY@1700 02/03 1745 AC 02/07 PO 1928 Sodium Chloride 1,000 ML ONCE ONE 02/07 0845 DC IV 02/07 2204 Results Last 48 Hrs of Labs/Mics: Laboratory Tests 02/08/18 0605: Anion Gap 9, Estimated GFR > 60, BUN/Creatinine Ratio 25.0, CBC w Diff NO MAN DIFF REQ, RBC 3.44 L, MCV 84.8, MCH 28.5, MCHC 33.7, RDW 15.5 H, MPV 8.0, Gran % 64.4, Lymphocytes % 23.3, Monocytes % 7.5, Eosinophils % 4.1, Basophils % 0.7, Absolute Granulocytes 6.7 H, Absolute Lymphocytes 2.4, Absolute Monocytes 0.8 H, Absolute Eosinophils 0.4, Absolute Basophils 0.1 02/07/18 1700: CBC w Diff NO MAN DIFF REQ, RBC 3.65 L, MCV 84.9, MCH 28.4, MCHC 33.5, RDW 15.3 H, MPV 8.6, Gran % 63.0, Lymphocytes % 25.1, Monocytes % 6.7, Eosinophils % 4.2 , Basophils % 1.0, Absolute Granulocytes 7.2 H, Absolute Lymphocytes 2.9, Absolute Monocytes 0.8 H, Absolute Eosinophils 0.5, Absolute Basophils 0.1 02/07/18 0648: Anion Gap 7, Estimated GFR > 60, BUN/Creatinine Ratio 30.0 H, CBC w Diff NO MAN DIFF REQ, RBC 3.46 L, MCV 84.3, MCH 28.4, MCHC 33.7, RDW 14.9 H, MPV 8.1, Gran % 70.8, Lymphocytes % 17.1 L, Monocytes % 6.8, Eosinophils % 4.4, Basophils % 0.9, Absolute Granulocytes 7.0 H, Absolute Lymphocytes 1.7, Absolute Monocytes 0.7 H, Absolute Eosinophils 0.4, Absolute Basophils 0.1 02/06/18 2235: CBC w Diff NO MAN DIFF REQ, RBC 3.25 L, MCV 84.2, MCH 27.8, MCHC 33.0, RDW 15.4 H, MPV 7.6, Gran % 58.9, Lymphocytes % 28.4, Monocytes % 8.0, Eosinophils % 4.1 , Basophils % 0.6, Absolute Granulocytes 6.5, Absolute Lymphocytes 3.1, Absolute Monocytes 0.9 H, Absolute Eosinophils 0.5, Absolute Basophils 0.1 02/06/18 1435: CBC w Diff NO MAN DIFF REQ, RBC 3.36 L, MCV 84.2, MCH 28.0, MCHC 33.2, RDW 14.9 H, MPV 7.7, Gran % 63.9, Lymphocytes % 23.4, Monocytes % 8.2, Eosinophils % 3.6 , Basophils % 0.9, Absolute Granulocytes 6.6 H, Absolute Lymphocytes 2.4, Absolute Monocytes 0.8 H, Absolute Eosinophils 0.4, Absolute Basophils 0.1 Assessment/Plan Assessment/Plan Assessment: 1. CAD, status post myocardial infarction in June 2. Status post cystocele repair 3. Vaginal bleeding noted on reintroduction of Eliquis 4. Hypertension Plan: -continue to monitor off of anticoagulation for now -If anticoagulation is to be restarted while the patient continues to have any evidence of bleeding, then I would favor a trial of IV heparin for 24 - 48 hours with close monitoring. -Maintain on teletypesetter monitor for now -Await further input and plans from urology -Out of bed, ambulate as much as possible while off of anticoagulation Continue telemetry? Yes
[2018-02-08 14:11] LABS: ABSOLUTE BASOPHIL COUNT 0.1 /CUMM (0.0-0.2); ABSOLUTE EOSINOPHIL COUNT 0.4 /CUMM (0.0-0.7); ABSOLUTE GRANULOCYTE CT 7.4 /CUMM (1.4-6.5); ABSOLUTE LYMPH COUNT 2.2 /CUMM (1.2-3.4); ABSOLUTE MONOCYTE COUNT 0.8 /CUMM (0.10-0.60); BASOPHIL % 0.7 % (0.0-2.0); EOSINOPHIL % 3.4 % (0-5); GRANULOCYTE % 68.1 % (42.2-75.2); HEMATOCRIT 29.7 % (37-47); MEAN CORPUSCULAR HGB 28.3 PG (27.0-31.0); MEAN CORPUSCULAR HGB CONC 33.4 G/DL (33.0-37.0); MEAN CORPUSCULAR VOLUME 84.8 FL (81.0-99.0); MEAN PLATELET VOLUME 7.6 FL (7.4-10.4); PLATELET COUNT 441 /CUMM (130-400); RBC DISTRIBUTION WIDTH 15.1 % (11.5-14.5); RED BLOOD CELL CT 3.51 /CUMM (4.20-5.40); WHITE BLOOD CELL COUNT 10.8 /CUMM (4.8-10.8)
[2018-02-08 14:44] LABS: PTT 34 SEC (25-37)
--- NOTE | 2018-02-08 16:51 | PN- Urology ---
Subjective Subjective: Pt had no overnight events. She is spotting. She is tolerating a diet and ambulating. No Cp, dizziness, SOB or calf pain. Review of Systems Constitutional: Denies: no symptoms. EENTM: Reports: no symptoms. Cardiovascular: Reports: no symptoms. Respiratory: Reports: no symptoms. Gastrointestinal: Reports: no symptoms. Genitourinary: Reports: no symptoms. Musculoskeletal: Reports: no symptoms. Skin: Reports: no symptoms. Neurological/Psychological: Reports: no symptoms. Hematologic/Endocrine: Reports: no symptoms. Immunologic/Allergic: Reports: no symptoms. Objective Vital Signs and I&Os Vital Signs Date Time Temp Pulse Resp B/P B/P Pulse O2 O2 Flow FiO2 Mean Ox Delivery Rate 02/08 1501 98.2 66 18 106/32 97 02/08 1032 70 130/710 02/08 0655 98.1 78 18 118/72 95 Room Air 02/08 0127 117/60 02/08 0000 117/60 02/07 2257 98.3 62 18 120/70 95 02/07 2104 98.2 71 19 130/76 96 02/07 1915 98.2 74 19 138/82 96 02/07 1720 98.6 64 18 138/80 96 Intake & Output 02/08 1600 02/08 0800 02/08 0000 02/07 1600 02/07 0800 02/07 0000 Intake Total 120 620 800 220 Output Total 400 Balance 120 220 800 220 Intake, Oral 120 620 800 220 Number 1 Bowel Movements Output, Urine 400 Patient 50.944 kg 50.944 kg Weight Physical Exam General Appearance: well developed/nourished, no apparent distress, alert, awake , comfortable Head: atraumatic, normal appearance Ears, Nose, Throat: normal ENT inspection Neck: normal inspection Respiratory: no respiratory distress Abdomen: soft, non-tender Rectal: deferred Back: normal inspection Extremities: no edema Neurologic/Psychiatric: awake, alert, oriented x 3, normal gait Skin: intact, normal color, warm/dry Reproductive: Normal female genitalia Current Medications: Current Medications Sig/Alessio Start time Last Medication Dose Route Stop Time Status Admin Acetaminophen 650 MG Q4P PRN 02/04 1500 AC 02/04 PO 2116 Bisacodyl 5 MG DAILY 02/05 1015 AC 02/08 PO 0819 Carvedilol 12.5 MG BID 02/08 0900 AC 02/08 PO 1032 Docusate Sodium 100 MG BID 02/08 1645 UNVr PO Heparin Sodium 25,000 UNIT Q24H 02/08 1230 AC 02/08 (Porcine) IV 1332 Sodium Chloride 500 ML Heparin Sodium 25,000 UNIT Q24H 02/08 0845 DC (Porcine) IV Sodium Chloride 500 ML Omeprazole 40 MG DAILY AC 02/02 1702 AC 02/08 PO 0644 Polyethylene Glycol 17 GM DAILY PRN 02/04 1334 AC 02/05 PO 1911 Senna 187 MG AT BEDTIME 02/04 2100 AC 02/07 PO 1929 Simvastatin 40 MG DAILY@1700 02/03 1745 AC 02/07 PO 1928 Sodium Chloride 1,000 ML ONCE ONE 02/07 0845 DC IV 02/07 2204 Results Last 48 Hours of Labs: Laboratory Tests 02/08 02/08 1354 0605 Chemistry Sodium (137 - 145 mmol/L) 135 L Potassium (3.5 - 5.1 mmol/L) 4.4 Chloride (98 - 107 mmol/L) 100 Carbon Dioxide (22 - 30 mmol/L) 27 Anion Gap (5 - 16) 9 BUN (7 - 17 mg/dL) 15 Creatinine (0.5 - 1.0 mg/dL) 0.6 Estimated GFR (>60 ml/min) > 60 BUN/Creatinine Ratio (7 - 25 %) 25.0 Coagulation APTT (25 - 37 SEC) 34 Hematology CBC w Diff NO MAN DIFF REQ NO MAN DIFF REQ WBC (4.8 - 10.8 /CUMM) 10.8 10.4 RBC (4.20 - 5.40 /CUMM) 3.51 L 3.44 L Hgb (12.0 - 16.0 G/DL) 9.9 L 9.8 L Hct (37 - 47 %) 29.7 L 29.2 L MCV (81.0 - 99.0 FL) 84.8 84.8 MCH (27.0 - 31.0 PG) 28.3 28.5 MCHC (33.0 - 37.0 G/DL) 33.4 33.7 RDW (11.5 - 14.5 %) 15.1 H 15.5 H Plt Count (130 - 400 /CUMM) 441 H 426 H MPV (7.4 - 10.4 FL) 7.6 8.0 Gran % (42.2 - 75.2 %) 68.1 64.4 Lymphocytes % (20.5 - 51.1 %) 20.8 23.3 Monocytes % (1.7 - 9.3 %) 7.0 7.5 Eosinophils % (0 - 5 %) 3.4 4.1 Basophils % (0.0 - 2.0 %) 0.7 0.7 Absolute Granulocytes (1.4 - 6.5 /CUMM) 7.4 H 6.7 H Absolute Lymphocytes (1.2 - 3.4 /CUMM) 2.2 2.4 Absolute Monocytes (0.10 - 0.60 /CUMM) 0.8 H 0.8 H Absolute Eosinophils (0.0 - 0.7 /CUMM) 0.4 0.4 Absolute Basophils (0.0 - 0.2 /CUMM) 0.1 0.1 02/07 02/07 1700 0648 Chemistry Sodium (137 - 145 mmol/L) 134 L Potassium (3.5 - 5.1 mmol/L) 4.2 Chloride (98 - 107 mmol/L) 102 Carbon Dioxide (22 - 30 mmol/L) 25 Anion Gap (5 - 16) 7 BUN (7 - 17 mg/dL) 15 Creatinine (0.5 - 1.0 mg/dL) 0.5 Estimated GFR (>60 ml/min) > 60 BUN/Creatinine Ratio (7 - 25 %) 30.0 H Hematology CBC w Diff NO MAN DIFF REQ NO MAN DIFF REQ WBC (4.8 - 10.8 /CUMM) 11.4 H 9.9 RBC (4.20 - 5.40 /CUMM) 3.65 L 3.46 L Hgb (12.0 - 16.0 G/DL) 10.4 L 9.9 L Hct (37 - 47 %) 31.0 L 29.2 L MCV (81.0 - 99.0 FL) 84.9 84.3 MCH (27.0 - 31.0 PG) 28.4 28.4 MCHC (33.0 - 37.0 G/DL) 33.5 33.7 RDW (11.5 - 14.5 %) 15.3 H 14.9 H Plt Count (130 - 400 /CUMM) 448 H 362 MPV (7.4 - 10.4 FL) 8.6 8.1 Gran % (42.2 - 75.2 %) 63.0 70.8 Lymphocytes % (20.5 - 51.1 %) 25.1 17.1 L Monocytes % (1.7 - 9.3 %) 6.7 6.8 Eosinophils % (0 - 5 %) 4.2 4.4 Basophils % (0.0 - 2.0 %) 1.0 0.9 Absolute Granulocytes (1.4 - 6.5 /CUMM) 7.2 H 7.0 H Absolute Lymphocytes (1.2 - 3.4 /CUMM) 2.9 1.7 Absolute Monocytes (0.10 - 0.60 /CUMM) 0.8 H 0.7 H Absolute Eosinophils (0.0 - 0.7 /CUMM) 0.5 0.4 Absolute Basophils (0.0 - 0.2 /CUMM) 0.1 0.1 02/06 2235 Hematology CBC w Diff NO MAN DIFF REQ WBC (4.8 - 10.8 /CUMM) 11.0 H RBC (4.20 - 5.40 /CUMM) 3.25 L Hgb (12.0 - 16.0 G/DL) 9.0 L Hct (37 - 47 %) 27.4 L MCV (81.0 - 99.0 FL) 84.2 MCH (27.0 - 31.0 PG) 27.8 MCHC (33.0 - 37.0 G/DL) 33.0 RDW (11.5 - 14.5 %) 15.4 H Plt Count (130 - 400 /CUMM) 347 MPV (7.4 - 10.4 FL) 7.6 Gran % (42.2 - 75.2 %) 58.9 Lymphocytes % (20.5 - 51.1 %) 28.4 Monocytes % (1.7 - 9.3 %) 8.0 Eosinophils % (0 - 5 %) 4.1 Basophils % (0.0 - 2.0 %) 0.6 Absolute Granulocytes (1.4 - 6.5 /CUMM) 6.5 Absolute Lymphocytes (1.2 - 3.4 /CUMM) 3.1 Absolute Monocytes (0.10 - 0.60 /CUMM) 0.9 H Absolute Eosinophils (0.0 - 0.7 /CUMM) 0.5 Absolute Basophils (0.0 - 0.2 /CUMM) 0.1 Assessment/Plan Assessment/Plan 72yo female with MN and DVT in recent past with postop bleeding after receiving Eliquis too soon postop. She trended down in HCT with one episode of chest pain releived with NG. She has had vaginal bleeding with some low BPs that prevented the restarting of anticoagulant. She has had stable HCT for the last two days and heparin started today with no issue. If cont to be without vag bleeding, can restart asa and eliquis rin and be discharged home. FU in my office early next week. Core Measures Venous Thromboembolism VTE Risk Factors Age>40 No Mechanical VTE Prophylaxis d/t N/A MechProphylax Ordered No VTE Pharm Prophylaxis d/t Other (active bleeding) Comment: postop bleeding
[2018-02-08 22:20] LABS: PTT 54 SEC (25-37)
[2018-02-09 05:54] LABS: ABSOLUTE BASOPHIL COUNT 0.1 /CUMM (0.0-0.2); ABSOLUTE EOSINOPHIL COUNT 0.4 /CUMM (0.0-0.7); ABSOLUTE GRANULOCYTE CT 7.4 /CUMM (1.4-6.5); ABSOLUTE LYMPH COUNT 2.6 /CUMM (1.2-3.4); ABSOLUTE MONOCYTE COUNT 0.8 /CUMM (0.10-0.60); BASOPHIL % 0.6 % (0.0-2.0); EOSINOPHIL % 3.7 % (0-5); GRANULOCYTE % 65.6 % (42.2-75.2); HEMATOCRIT 28.9 % (37-47); MEAN CORPUSCULAR HGB 28.6 PG (27.0-31.0); MEAN CORPUSCULAR HGB CONC 33.6 G/DL (33.0-37.0); MEAN CORPUSCULAR VOLUME 85.1 FL (81.0-99.0); MEAN PLATELET VOLUME 8.1 FL (7.4-10.4); PLATELET COUNT 443 /CUMM (130-400); RBC DISTRIBUTION WIDTH 15.8 % (11.5-14.5); RED BLOOD CELL CT 3.39 /CUMM (4.20-5.40); WHITE BLOOD CELL COUNT 11.2 /CUMM (4.8-10.8)
[2018-02-09 06:47] LABS: PTT 94 SEC (25-37)
[2018-02-09 07:31] VITALS: BP 122/70
[2018-02-09 08:29] VITALS: BP 122/70
--- NOTE | 2018-02-09 08:41 | PN- Housestaff ---
See Addendum Subjective Follow-up For: Bleeding s/p cystocele repair Hx. DVT/Prothrombin mutation Subjective: Afebrile overnight. Patient is seen and examined this morning. Patient states she feels better today with no lightheadedness, fatigue, or dizziness. Patient states she is eager to go home as she relates her vaginal bleeding has decreased and is mostly spotting at this point. Patient otherwise denies any chest pain, palpitations, and shortness of breath. Review of Systems Constitutional: Reports: see HPI. Objective Last 24 Hrs of Vital Signs/I&O Vital Signs Date Time Temp Pulse Resp B/P B/P Pulse O2 O2 Flow FiO2 Mean Ox Delivery Rate 02/09 0829 71 122/70 02/09 0800 98 Room Air 02/09 0731 98.2 65 18 122/70 98 Room Air 02/09 0000 Room Air 02/08 2250 97.9 74 18 112/68 97 Room Air 02/08 2012 82 112/68 02/08 1659 98.1 70 18 118/72 95 02/08 1600 98.2 70 18 120/70 97 02/08 1501 98.2 66 18 106/32 97 02/08 1200 98.2 68 18 130/70 97 Intake & Output 02/09 1600 02/09 0800 02/09 0000 Intake Total 164.8 186.6 Output Total Balance 164.8 186.6 Intake, IV 164.8 36.6 Intake, Oral 150 Patient 111 lb Weight Weight Bed scale Measurement Method Physical Exam General Appearance: Alert, Oriented X3, Cooperative, No Acute Distress Skin: No Rashes, No Breakdown Skin Temp/Moisture Exam: Warm/Dry HEENT: Atraumatic Neck: Supple, No JVD Cardiovascular: Regular Rate, Normal S1, Normal S2 Lungs: Clear to Auscultation Abdomen: Soft, No Tenderness Neurological: Normal Speech Extremities: No Edema, Normal Pulses Assessment/Plan Assessment: CT ABD/PELVIS - 1. Large pelvic hematoma is seen posterior to the bladder with adjacent collection of Surgicel in the left lower pelvis. This hematoma is slightly larger compared to the prior exam. On the current study, which was not performed as a CTA, there is good opacification of the arterial vessels, and no definite active extravasation of contrast is seen to suggest active bleeding. 2. Postoperative changes seen in the pelvis related to recent cystocele repair with decrease in the amount of free air in the pelvis. Small amounts of air are seen in the bladder, consistent with instrumentation. 3. Prominent rectosigmoid diverticulosis with no evidence of acute diverticulitis. 72-year-old female with past medical history of recent NC in 2018, diverticulitis, prothrombin gene mutation maintained on Abixaban. She is coming in post procedure cystocele repair with mesh with genitourinary bleeding. Vitals on presentation stable except elevated blood pressure repeat readings 161 /83 Admitting labs are significant for leukocytosis of 11.7, hyponatremia 134, INR of 1.38 UA is positive for RBCs, nitrate positive and 10-15 WBCs Patient is being admitted to general medicine for further treatment and evaluation of postop complications #Genitourinary bleeding status post cystocele repair and bladder mesh -Patient is complaining of increasing abdominal pain and reports 2-3 PADS changed because of ongoing bleeding. The CT scan done in the ED was positive for small hematoma. The patient is hemodynamically stable at this point -We'll repeat H&H and f/u , call Dr. Connelly if there is a drop in H/H -Type and screen with with cardiac history transfusion goal will be Hb less than 8 -Holding eliquis for now; restarted Eliquis 02/09 -f/u with dr Connelly; holding Heparin currently; spoke with Dr. Connelly who stated Heparin can be restarted (02/08/18); dc'd Heparin 02/09 -Patient had 3 episodes of gross hematuria, approximately 20-40 ml of blood mixed with urine, during the evening of 02/05; H/H dropped to 9.3/27.7 and patient had subsequent Type And Crossmatch; will follow up with Dr. Connelly regarding management of bleeding; discussed with Dr. Connelly and we will continue to monitor the bleeding with serial CBCs -Ordered follow up CT abd/pelvis to reevaluate source of bleeding; large pelvic hematoma is seen posterior to the bladder, slightly larger compared to prior study -Followed with with on-call Urologist Dr. Lance today 02/09 who notified our team that she is stable for discharge and to follow up with Dr. Connelly as an outpatient #Prothrombin gene mutation -Patient has history of hypercoagulable state with Prothrombin gene mutation -We held anticoagulation pending clinical status and H/H; Urology seeing patient and recommended to hold Heparin until H/H improves -Started Heparin per DVT/PE protocol on the authority of Dr. Connelly on 02/08/18; will transition to Eliquis upon discharge; dc'd Heparin and started Eliquis 02/09 #History of recent NC -We hold aspirin setting of active bleeding -Continue carvedilol and statin -Continue Amlodipine #History of GERD -Continue PPI #Hypertension hyperlipidemia -Continue carvedilol and statin -Carvedilol dc'd due to low blood pressure readings with low H/H; restarted Carvedilol Heart healthy diet DVT prophylaxis Code Status: FC Problem List: 1. Postoperative vaginal bleeding following genitourinary procedure Pain Ratin Pain Location: na Pain Goal: Remain pain free Pain Plan: na Tomorrow's Labs & Rationales: routine
== END 2018-02-09 13:45 | DRG 920 ==
LOC: ERH 11:41 → ERHI 17:03 → 1NO 17:03 → ENRESERV 18:50 → ENTRNSPT 20:02 → CMPTRNSPT 21:07 → 2NB 21:21 → 1NO 02-03 12:05 → ENTRNSPT 02-09 13:33 → EDTRNSPT 02-09 13:45 → EDTRNSPTSTS 02-09 13:45 → 1NO 02-09 13:45 → CMPTRNSPT 02-09 13:56
PROVIDERS: Internal Medicine; Physician Assistant Medical; Student in an Organized Health Care Education/Training Program
DX: N99.820 Postprocedural hemorrhage of a genitourinary system organ or structure following a genitourinary system procedure (principal); D68.52 Prothrombin gene mutation; I25.2 Old myocardial infarction; K21.9 Gastro-esophageal reflux disease without esophagitis; I10 Essential (primary) hypertension; N99.840 Postprocedural hematoma of a genitourinary system organ or structure following a genitourinary system procedure; K59.00 Constipation, unspecified; I25.119 Atherosclerotic heart disease of native coronary artery with unspecified angina pectoris; Z98.61 Coronary angioplasty status; K57.30 Diverticulosis of large intestine without perforation or abscess without bleeding; Z79.01 Long term (current) use of anticoagulants; Y83.8 Other surgical procedures as the cause of abnormal reaction of the patient, or of later complication, without mention of misadventure at the time of the procedure; Z86.718 Personal history of other venous thrombosis and embolism; Z88.5 Allergy status to narcotic agent
CPT/HCPCS: 1NSP; 2NBSP; 36415; 36592; 74177; 81001; 82436; 87086; 93005; 93010; 96374; 96375; J0696; J1644; J2405; J3490